=== PATIENT | male | born 1950 | race Caucasian/White ===

== ENCOUNTER 2018-01-07 01:29 | Outpatient (CLI) | payer OTHER, SELFPAY ==
[2018-01-07 12:08] LABS: Anion Gap 10.5 mmol/L (3-11); BUN 27 mg/dL (7-18); CO2 24.5 mmol/L (21.0-32.0); CREATININE 0.85 mg/dL (0.70-1.30); Calcium 9.7 mg/dL (8.5-10.1); Chloride 102 mmol/L (98-107); Glucose 93 mg/dL (70-100); Potassium 4.3 mmol/L (3.5-5.1); Sodium 137 mmol/L (136-145)
== END 2018-01-07 01:49 ==
PROVIDERS: PCP Family Medicine; Visit Provider Family Medicine
DX: I10 Essential (primary) hypertension (principal); E78.5 Hyperlipidemia, unspecified
CPT/HCPCS: 36415; 80048

== ENCOUNTER 2018-06-16 16:29 | Observation (INO) | payer OTHER, SELFPAY ==
[2018-06-16] VITALS (58 sets, daily range): BP systolic 76–124; BP diastolic 39–80; PULSE 65–146; RESP 15–31; TEMP 36–37.2; O2SAT 94–100
--- NOTE | 2018-06-16 16:49 | DI.COMBO_ITS ---
SYMPTOM/DIAGNOSIS: FELL, SYNCOPE, RAPID A FIB, FRONTAL CONTUSION AP AND LATERAL CHEST: The lungs are free of infiltrate. There is no pleural effusion. The cardiovascular structures appear intact. SUMMARY: No evidence of acute cardiopulmonary disease. NONCONTRAST HEAD CT: There is no evidence of an intra/extra-axial hemorrhage. There is no evidence of edema. There is mild generalized atrophy. The ventricles are normal. There is no skull fracture. The paranasal sinuses as visualized appear intact. There is no evidence of a mastoid effusion. Soft tissues are unremarkable. SUMMARY: No acute intracranial abnormality is demonstrated. CERVICAL SPINE CT: The vertebral bodies are intact with nothing to suggest an acute fracture. Disc space narrowing is noted at all cervical levels and there is a mild degree of spinal stenosis involving the neural foramen at multiple levels. The soft tissues are unremarkable. The lung apices are unremarkable. 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 There is nothing to suggest a superimposed acute fracture or subluxation.
--- NOTE | 2018-06-16 16:51 | W.ED.GENAD ---
Discharge Plan Disposition Patient Disposition: [facility] INPATIENT Condition: Improving Discharge Details Chief Complaint: Dizzy/Sync Clinical Impression: Atrial fibrillation with rapid ventricular response Primary Care Provider: Anthony Elizabeth ED Provider: Freddie Jo Home Meds and New Rx's Prescriptions: No Action atorvastatin 40 mg tablet 40 mg PO QPM Qty: 90 RF: 4 gemfibrozil 600 mg tablet 600 mg PO BID Qty: 180 RF: 4 lisinopril-hydrochlorothiazide 20-12.5 mg tablet 1 tab PO DAILY Qty: 90 RF: 4 aspirin [Aspir-81] 81 MG tablet,delayed release (DR/EC) 162 mg PO DAILY RF: 0 ibuprofen 200 MG tablet 600 tab PO DAILY PRN RF: 0 multivitamin [Daily Multi-Vitamin] 1 EACH tablet 1 tab PO DAILY RF: 0 Medical Decision Making 68-year-old male presents from home via EMS. States he awoke normally today and then was working on his roof going up and down the ladder all day. Minimal to no hydration by mouth. States he did have a small amount of alcohol at lunch. This afternoon he suddenly felt mildly lightheaded, generally weak and with palpitations. He sat on a fence and then had a syncopal event which she was witnessed to fall over and striking the ground. Denies chest pain. He arrives improved. Patient with rapid atrial fibrillation on triage. Exam otherwise notable for abrasions/contusion to the forehead. He has known underlying aortic stenosis as well. Differential diagnosis includes dehydration, electrolyte abnormality. Patient placed on monitor and storage bin tender, given fluid bolus and magnesium. Given his traumatic injury and syncopal event he is referred for laboratory testing, chest x-ray, CT scan of the head and cervical spine. Patient's radiographic evaluation is unremarkable. He has some pre-standing degenerative disease but no acute findings. Laboratories are notable for BUN of 47 with creatinine of 1.4 which is consistent with acute dehydration over his baseline. Following 1500 cc of fluid, patient remains in rapid atrial fibrillation. Given 10 mg of diltiazem bolus and placed on a drip. He will require admission. Case discussed with Dr. Louise. After interview with Dr. Louise, patient converted to normal sinus rhythm with a rate in the 90s. Lab Data Lab results reviewed: Yes I reviewed the patient's lab results. Laboratory Results - last 24 hr 06/16/18 06/16/18 16:50 16:50 WBC 9.12 RBC 3.61 L Hgb 11.5 L Hct 32.4 L MCV 89.8 MCH 31.9 MCHC 35.5 RDW 12.0 Plt Count 295 MPV 10.0 Immature Gran % 0.3 Neutrophils % 71.4 Lymphocytes % 19.2 Monocytes % 7.8 Eosinophils % 1.1 Basophils % 0.2 Absolute Neutrophils 6.51 Absolute Lymphocytes 1.75 Absolute Monocytes 0.71 H Absolute Eosinophils 0.10 Absolute Basophils 0.02 Sodium 138 Potassium 3.9 Chloride 102 Carbon Dioxide 20.3 L Anion Gap 15.7 H BUN 47 H Creatinine 1.43 H Estimated GFR/1.73 m2 49.03 Glucose 123 H Calcium 9.5 Magnesium 2.5 H Total Bilirubin 0.5 AST 14 L ALT 15 Alkaline Phosphatase 63 Troponin I 0.06 Total Protein 7.6 Albumin 4.5 TSH 1.48 ECG Data Attestation: I personally reviewed and interpreted this ECG (s) as follows: Interpretation: Rapid atrial fibrillation with a rate of 126. The QRS is narrow, no ST segment elevation is present. EKG #2 reveals normal sinus rhythm, rate in the 90s, narrow QRS, no ST segment elevation HPI General Mode of arrival: wheelchair. Date/Time Provider Initiated Documentation: 06/16/18 16:42. Limitations to Documentation: no limitations. Information obtained by: patient, family and EMS. History of Present Illness 68 year old M presents to the emergency department with the chief complaint of Palpitations, syncope with frontal contusion., described as moderate, Quality is described as constant, and is localized to the chest. Patient reports no radiation. Patient started experiencing this hour(s) and it has been intermittent. Rest improves symptom(s), Movement worsens symptoms . Patient notes headaches and syncope; denies chest pain, nausea/vomiting, seizure and shortness of breath. Patient did receive the following treatments prior to arrival, none Related Data Home Medications Medication Instructions Recorded Confirmed aspirin [Aspir 81] 162 mg PO DAILY tab-cap 11/06/12 06/16/18 ibuprofen 600 tab PO DAILY PRN 11/06/12 06/16/18 multivitamin [Multi Vitamin Daily] 1 tab PO DAILY 11/26/13 06/16/18 atorvastatin 40 mg tablet 40 mg PO QPM #90 tab 01/27/18 06/16/18 gemfibrozil 600 mg tablet 600 mg PO BID #180 tab-cap 01/27/18 06/16/18 lisinopril 20 1 tab PO DAILY #90 tab-cap 01/27/18 06/16/18 mg-hydrochlorothiazide 12.5 mg tablet Previous Rx's Medication Instructions Recorded atorvastatin 40 mg tablet 40 mg PO QPM #90 tab 01/27/18 gemfibrozil 600 mg tablet 600 mg PO BID #180 tab-cap 01/27/18 lisinopril 20 1 tab PO DAILY #90 tab-cap 01/27/18 mg-hydrochlorothiazide 12.5 mg tablet Allergies Allergy/AdvReac Type Severity Reaction Status Date / Time hydrocodone AdvReac Unknown Nausea Unverified 06/16/18 16:43 General Stated Complaint: Dizzy/Sync IAIN: 3 Review of Systems Review of Systems Had small amount of alcohol at lunch. Decreased p.o. intake today. Light headed with with rising. No neck, back, chest pain. Denies recent illness. 8 systems reviewed and otherwise negative [facility] Medical History Heart murmur (Acute) High cholesterol (Chronic) Hypertension (Chronic) Surgical History knee surgery (~04/2002) Family History Mother No problems noted. Father Diabetes Heart disease Brother Diabetes Essential hypertension Heart disease Hyperlipidemia Brother Essential hypertension Hyperlipidemia Brother Diabetes Essential hypertension Hyperlipidemia Social History Smoking/Tobacco Use Status: Never Second Hand Exposure: Yes Alcohol Intake: current Alcohol Intake frequency: a few times a week Alcohol type: wine Substance use type: does not use Duration: 60-90 minutes/day Frequency: 5-6 times per week Karen/Cheondoism: Confucianism Special karen needs: No Do you feel safe at home: Yes Exam Narrative Exam Narrative: GEN: awake, alert, oriented 3. Pleasant, well groomed, interactive. HEAD: Normocephalic, abrasions and contusions to the forehead. No midface tenderness, instability. ENT: Mucous membranes moist, oropharynx unremarkable, External ear exam unremarkable EYES: PERRL, EOMI NECK: Full ROM, no ERNESTO, no menigismus CHEST/RESP: Nontender, clear to auscultation bilateral, no wheeze/rhonchi/rales CARDIOVASCULAR: Irregularly irregular, tachycardic, 3 out of 6 systolic ejection murmur, rub sam. 2+ Rad pulse bilateral ABDOMEN: Soft, nontender, no mass. +Bowel sounds EXT: Full ROM, no edema, no rash Neuro: Grossly normal neurologic exam, conversant, interactive. Psych: Speech fluent, thoughts congruent, affect normal Course Vital Signs Temperature 36.7 C 06/16/18 16:36 Pulse 119 H 06/16/18 16:36 Respiratory Rate 21 06/16/18 16:36 Blood Pressure 100/55 L 06/16/18 16:36 Pulse Oximetry 100 06/16/18 16:36 Temperature 36.7 C 06/16/18 16:36 Temperature Source Skin 06/16/18 16:36 Pulse 119 H 06/16/18 16:36 Respiratory Rate 16 06/16/18 16:44 Respiratory Effort Non-Labored 06/16/18 16:44 Respiratory Depth Normal 06/16/18 16:44 Respiratory Pattern Normal 06/16/18 16:44 Blood Pressure 100/55 L 06/16/18 16:36 Pulse Oximetry 100 06/16/18 16:36 Pain Level 4 06/16/18 16:36
[2018-06-16 16:58] LABS: Abs Immature Grans 0.03 k/cumm (0.0-0.09); Absolute Basophil Count 0.02 k/cumm (0.0-0.2); Absolute Lymphocyte Count 1.75 k/cumm (1.2-3.4); Absolute Monocyte Count 0.71 k/cumm (0.11-0.7); Absolute Neutrophil Count 6.51 k/cumm (1.2-6.7); Basophils % 0.2; Eosinophils % 1.1; HCT 32.4 % (40.0-50.0); HGB 11.5 g/dL (13.5-17.5); Immature Grans % 0.3; Lymphocytes % 19.2; Mean Corp. HGB Concentration 35.5 g/dL (32.0-36.0); Mean Corpuscular Hemoglobin 31.9 pg (27.0-33.0); Mean Corpuscular Volume 89.8 fL (80-95); Monocytes % 7.8; Neutrophils % 71.4; Platelet Count 295 x1000/uL (130-400); RBC 3.61 m/cumm (4.50-6.00); White Blood Cell Count 9.12 k/cumm (4.4-10.8)
[2018-06-16] MEDS: Normal Saline 1,000 ML 1000 ML IV ×2 (16:59→23:38)
[2018-06-16] MEDS: MAGNESIUM SULFATE 2 GM/50 ML BAG IVPB (16:59)
[2018-06-16 17:18] LABS: ETHANOL BLOOD < 3.0 mg/dL (<3)
[2018-06-16 17:21] LABS: ALT 15 U/L (12-78); AST 14 U/L (15-37); Albumin 4.5 g/dL (3.4-5.0); Alkaline Phosphatase 63 U/L (46-116); Anion Gap 15.7 mmol/L (3-11); BUN 47 mg/dL (7-18); Bilirubin, Total 0.5 mg/dL (0.2-1.0); CO2 20.3 mmol/L (21.0-32.0); CREATININE 1.43 mg/dL (0.70-1.30); Calcium 9.5 mg/dL (8.5-10.1); Chloride 102 mmol/L (98-107); Estimated GFR 49.03 (mL/min/1.73m2); Glucose 123 mg/dL (70-100); Magnesium 2.5 mg/dL (1.8-2.4); Potassium 3.9 mmol/L (3.5-5.1); Sodium 138 mmol/L (136-145); TSH 1.48 uIU/mL (0.358-3.74); Total Protein 7.6 g/dL (6.4-8.2); Troponin I 0.06 ng/mL (0.00-0.06)
--- NOTE | 2018-06-16 17:39 | DI.VRAD_ITS ---
EXAM: XR Chest, 2 Views EXAM DATE/TIME: 06/16/2018 4:51 PM CLINICAL HISTORY: 68 years old, male; Signs and symptoms; Other: Fall/syncope. , Rapid afib TECHNIQUE: Imaging protocol: XR of the chest, 2 views. COMPARISON: No relevant prior studies available. FINDINGS: Lungs: See Bones/joints Finding. Pleural space: See Bones/joints Finding. Heart/Mediastinum: Unremarkable. No cardiomegaly. Bones/joints: There is mild spondylosis of the thoracic spine. There a few abnormal reticular markings in the right midlung most likely scarring. There is no pneumothorax, pleural effusion or focal consolidation. IMPRESSION: Chronic changes but no acute cardiopulmonary process. Dictated and Authenticated by: Ochoa Dumont MD. Ordering:CHARLES Frazier MD
--- NOTE | 2018-06-16 17:45 | DI.VRAD_ITS ---
EXAM: CT Head Without Contrast EXAM DATE/TIME: 06/16/2018 4:51 PM CLINICAL HISTORY: 68 years old, male; Signs and symptoms; Other: Fall, syncope, frontal contusion TECHNIQUE: Imaging protocol: Axial computed tomography images of the head/brain without contrast. Coronal and sagittal reformatted images were created and reviewed. Radiation optimization: All CT scans at this facility use at least one of these dose optimization techniques: automated exposure control; mA and/or kV adjustment per patient size (includes targeted exams where dose is matched to clinical indication); or iterative reconstruction. COMPARISON: No relevant prior studies available. FINDINGS: Brain: Normal. No hemorrhage. No significant white matter disease. No edema. Ventricles: Normal. No ventriculomegaly. Cortical sulci of the frontal and parietal lobes are mildly more prominent than average involutional changes Bones/joints: Unremarkable. No acute fracture. Sinuses: Visualized sinuses are unremarkable. No acute sinusitis. Mastoid air cells: Visualized mastoid air cells are unremarkable. No mastoid effusion. Soft tissues: Unremarkable. IMPRESSION: No acute intracranial abnormality. EXAM: CT Cervical Spine Without Contrast EXAM DATE/TIME: 06/16/2018 4:51 PM CLINICAL HISTORY: 68 years old, male; Signs and symptoms; Other: Fall, syncope, frontal contusion TECHNIQUE: Imaging protocol: Axial computed tomography images of the cervical spine without intravenous contrast. Coronal and sagittal reformatted images were created and reviewed. Radiation optimization: All CT scans at this facility use at least one of these dose optimization techniques: automated exposure control; mA and/or kV adjustment per patient size (includes targeted exams where dose is matched to clinical indication); or iterative reconstruction. COMPARISON: No relevant prior studies available. FINDINGS: Vertebrae: No acute fracture. Normal alignment. Discs/Spinal canal/Neural foramina: There is severe narrowing of essentially every disc space the cervical spine. There mild degrees of stenosis of the spinal canal the neural foramina multiple levels. Soft tissues: Unremarkable. Lungs: Lung apices are normal. IMPRESSION: Prominent multilevel discogenic disease but no acute abnormality Dictated and Authenticated by: Ochoa Dumont MD. Ordering:CHARLES Frazier MD
[2018-06-16] MEDS: dilTIAZem 25 MG/5 ML VIAL 10 MG IVP (18:07)
[2018-06-16] MEDS: dilTIAZem 125 MG in Normal Saline 100 ML IV (18:54)
--- NOTE | 2018-06-16 19:48 | HPE_ITS ---
Date of service: 06/16/18 Time of Service: 19:34 Assessment and Plan (1) Syncope: Current visit: Yes Status: Chronic Syncope: liklely secondary to rapid afib in setting of both aortic stenosis and dehydration. Will continue Cardizem overnight, trend out troponons, and uipdate ECHO. It does not sound to me like alcohol is a factor here. [id number] score is 2, nominally a candidate for antti-coagulation but given that this is a first time episode will hold on institution for now. Will continue ASA in meantime. History of Present Illness Chief Complaint: syncope Narrative: 68 male with h/o HTN and aortic stenosis. Was working hard outdoors today, hot and sweating, became light headed, noted some palpitations, then came to on the ground having passed out. No seizure activity reported. No report of CP. In ER noted to be in rapid AF, started on Cardizem drip. During my interview patient converted to NSR. Patient reports only minimal alcohol intake, one glass of wine per day. Review of Systems Review of Systems All systems reviewed & are unremarkable except as noted in HPI and below PFSH Medical History Heart murmur (Acute) High cholesterol (Chronic) Hypertension (Chronic) Surgical History knee surgery (~04/2002) Family History Mother No problems noted. Father Diabetes Heart disease Brother Diabetes Essential hypertension Heart disease Hyperlipidemia Brother Essential hypertension Hyperlipidemia Brother Diabetes Essential hypertension Hyperlipidemia Social History Smoking/Tobacco Use Status: Never Second Hand Exposure: Yes Alcohol Intake: current Alcohol Intake frequency: a few times a week Alcohol type: wine Substance use type: does not use Duration: 60-90 minutes/day Frequency: 5-6 times per week Karen/Judaism: Pentecostalism Special karen needs: No Do you feel safe at home: Yes Meds Home Medications Medication Instructions Recorded Confirmed Type aspirin [Aspir 81] 162 mg PO DAILY tab-cap 11/06/12 06/16/18 History ibuprofen 600 tab PO DAILY PRN 11/06/12 06/16/18 History multivitamin [Multi Vitamin Daily] 1 tab PO DAILY 11/26/13 06/16/18 History atorvastatin 40 mg tablet 40 mg PO QPM #90 tab 01/27/18 06/16/18 Rx gemfibrozil 600 mg tablet 600 mg PO BID #180 tab-cap 01/27/18 06/16/18 Rx lisinopril 20 1 tab PO DAILY #90 tab-cap 01/27/18 06/16/18 Rx mg-hydrochlorothiazide 12.5 mg tablet Allergies Allergy/AdvReac Type Severity Reaction Status Date / Time hydrocodone AdvReac Unknown Nausea Unverified 06/16/18 16:43 Exam Narrative Exam Narrative: 112/61, 95, 18, 99%, 36.7. HEENT 6-7 cm forehead abrasion. Neck supple. Lungs clear. Heart RRR, 3/6 systolic mumur radiating to carotids; carotid upstroke seems slightly delayed. Abdomen soft non-tender. Extr: no edema. Results EKG 1: AF, occ PVC. No ischemic changes. EKG 2 WNL. Labs : 06/16/18 16:50 06/16/18 16:50 Laboratory Results - last 24 hr 06/16/18 06/16/18 06/16/18 16:50 16:50 16:50 WBC 9.12 RBC 3.61 L Hgb 11.5 L Hct 32.4 L MCV 89.8 MCH 31.9 MCHC 35.5 RDW 12.0 Plt Count 295 MPV 10.0 Immature Gran % 0.3 Neutrophils % 71.4 Lymphocytes % 19.2 Monocytes % 7.8 Eosinophils % 1.1 Basophils % 0.2 Absolute Neutrophils 6.51 Absolute Lymphocytes 1.75 Absolute Monocytes 0.71 H Absolute Eosinophils 0.10 Absolute Basophils 0.02 Sodium 138 Potassium 3.9 Chloride 102 Carbon Dioxide 20.3 L Anion Gap 15.7 H BUN 47 H Creatinine 1.43 H Estimated GFR/1.73 m2 49.03 Glucose 123 H Calcium 9.5 Magnesium 2.5 H Total Bilirubin 0.5 AST 14 L ALT 15 Alkaline Phosphatase 63 Troponin I 0.06 Total Protein 7.6 Albumin 4.5 TSH 1.48 Ethyl Alcohol < 3.0 Last Vital Signs Temp 36.7 C 06/16/18 16:36 Pulse 95 H 06/16/18 19:11 Resp 18 06/16/18 19:11 BP 112/61 06/16/18 19:11 Pulse Ox 99 06/16/18 19:11
[2018-06-16 21:20] LABS: Troponin I 0.25 ng/mL (0.00-0.06)
[2018-06-16] MEDS: Atorvastatin 40 MG TAB PO (23:38)
[2018-06-16] MEDS: Acetaminophen 325 MG TAB 650 MG PO (23:44)
[2018-06-17] VITALS (27 sets, daily range): BP systolic 81–120; BP diastolic 44–65; PULSE 61–92; RESP 14–25; TEMP 36.6–37; O2SAT 98–100
[2018-06-17 07:32] LABS: Troponin I 0.19 ng/mL (0.00-0.06)
[2018-06-17] MEDS: Multivitamin TAB 1 TAB PO (08:41)
[2018-06-17] MEDS: Gemfibrozil 600 MG TAB PO (08:41)
[2018-06-17] MEDS: Aspirin E.C. 81 MG TABEC 162 MG PO (08:41)
[2018-06-17] MEDS: Normal Saline Flush 10 ML SYR IVP (08:42)
[2018-06-17] MEDS: Normal Saline 1,000 ML 75 ML IV (08:43)
[2018-06-17 09:08] LABS: Anion Gap 13.2 mmol/L (3-11); BUN 32 mg/dL (7-18); CO2 19.8 mmol/L (21.0-32.0); CREATININE 0.93 mg/dL (0.70-1.30); Calcium 8.4 mg/dL (8.5-10.1); Chloride 107 mmol/L (98-107); Glucose 115 mg/dL (70-100); Magnesium 2.3 mg/dL (1.8-2.4); NT-proBNP 2767 pg/mL; Potassium 3.6 mmol/L (3.5-5.1); Sodium 140 mmol/L (136-145); TSH 0.83 uIU/mL (0.358-3.74)
[2018-06-17 09:19] LABS: Cholesterol 109 mg/dL (50-200); HDL Cholesterol 51 mg/dL (40-60); LDL CHOLESTEROL 50 mg/dL (<100); Triglyceride 44 mg/dL (30-150)
--- NOTE | 2018-06-17 10:49 | PHARADMIT ---
Admission Pharmacy Clinical Review SYNCOPE, A-FIB (MPI Stress test today) Code Status Full Code Current Weight Wgt- 76.1 kg Renally Cleared and Narrow Therapeutic Index Meds CrCl~ 62 mL/min Meds-OK QTc Value / Action Taken QTc-486 to 463 BP Control, Fever BP- 102/51 Tmax- 37.2C Electrolytes reviewed Na- 140 K+3.6 Mag-2.3 DVT Prophylaxis ASA, Opiate Usage / Scheduled Bowel Regimen Ordered No No Plt/SCr for Heparin / Enoxaparin Plts-295 SCr-0.93 INR for Warfarin na H/H stable, WBC/Bands H&H-11.5/32.4 WBC- 9.12 Antibiotic appropriateness none Cultures and Sensitivities none Surgical ABX d/c within 24 hr NA DM control / Insulin Dosing BG-115 Heart Failure (Check EF%) (MARIELLE's, B-Block, Diuretics) Diltiazem drip-DC'd converted. IV to PO Switch No Home Meds Reviewed Yes Home Meds Not Ordered Lisinopril/HCTZ, Ibuprofen Comments Troponin- 0.06 ^ 0.25 ^ 0.19
[2018-06-17 11:04] LABS: Lactate-non-spesis 0.8 mmol/l (0.6-1.4)
--- NOTE | 2018-06-17 11:27 | DI.RAD_ITS ---
SYMPTOMS/DIAGNOSIS: SYNCOPE, AFIB, ? CHF PORTABLE AP CHEST: The lungs are well expanded and free of infiltrate. The heart is not enlarged. The hilar structures, mediastinum and tracheal air column are intact. Old healed right rib fractures are demonstrated. SUMMARY: No evidence of acute cardiopulmonary disease.
--- NOTE | 2018-06-17 11:30 | MERGEMPI_ITS ---
*[facility]* *[facility]* [address] [place] [address] Myocardial Perfusion Imaging - SPECT Regadenoson Date of study: 06/17/2018 *PATIENT PRESENTATION* Height: 162.6cm (64in) Blood Pressure: Weight: 75.9kg (167lb) BSA: 1.87m^2 Referring physician: Melody Velasquez Ordering physician: Melody Velasquez Impressions: Study suggests small myocardial infarction, without significant ischemia in the territory of the left anterior descending coronary artery. Summary: 1. Myocardial perfusion imaging: There is a small sized, moderately intense, fixed defect involving the apical wall(s). This suggests small myocardial infarction in the distribution of the left anterior descending coronary artery. 2. The calculated left ventricular ejection fraction after stress: 50%. LV global systolic function is low normal. No left ventricular regional motion abnormality. 3. Stress ECG conclusions: The stress ECG is negative. 4. Imaging information: gated. Image quality reduced due to diaphragmatic attenuation and subdiaphragmatic activity. Recommendations: Medical management is recommended. Indication: I48.91. History: REASON FOR TESTING: PATIENT PRESENTED TO THE ER ON 06/16/18 AFTER WORKING ON HIS ROOF ALL DAY. IN THE AFTERNOON HE SUDDENLY FELT MILDLY LIGHTHEADED, GENERALLY WEAK, HAD PALPITATIONS FOLLOWED BY A SYNCOPAL EVENT. HE THEN PRESENTED TO THE ER WITH RAPID AFIBRILLATION WHICH EVENTUALLY RETURNED TO SINUS RHYTHM AFTER IV FLUIDS AND CARDIAZEM BOLUS AND DRIP. TROPONIN LEVELS WITH THIS ADMISSION WERE 0.06, 0.25, AND 0.19. PATIENT DENIES CHEST PAIN UPON ARRIVAL TO TESTING TODAY. SIGNIFICANT PAST MEDICAL HISTORY: AORTIC STENOSIS, HEART MURMUR. SMOKING STATUS: NEVER. EXERCISE ROUTINE: PATIENT WALKS AT LEAST 2 MILES PER DAY AT LEAST 5 DAYS PER WEEK, AND ACTIVE WITH MAINTAINENCE OF LARGE PROPERTY AT HOME. Risk factors: Family history of coronary artery disease. Hypertension. Cholesterol: 109mg/dl. HDL: 51mg/dl. LDL: 50mg/dl. Triglycerides: 44mg/dl. ALLERGIES: HYDROCODONE. MEDICATIONS: ATOVASTATIN 40 MG HS, GEMFIBROZIL 600 MG BID, LISINOPRIL/HYDROCHLOROTHIAZIDE 20/12.5 DAILY, ASPIRIN 162 MG DAILY, IBUPROFEN 600 PRN, MULTIVITAMIN DAILY. Imaging Technique: Protocol: Regadenoson. Acquisition: Gated SPECT; 1 day - rest/stress. The patient was imaged in the supine position. Attenuation correction used. Isotope administration: - Rest. Tc[99m]-sestamibi. Dose: 10.4mCi. Injection time: 11:40 AM. Injection to stress time: 00:45. - Stress. Tc[99m]-sestamibi. Dose: 31mCi. Injection time: 01:30 PM. 1-2 min before end of exercise Baseline ECG: SINUS RHYTHM. HR 75 BPM. Normal ECG. Stress protocol: +--------+---+ + + !Stage !HR !BP (mmHg) !Comments ! +--------+---+ + + !Baseline!75 !110/60 (77)! ! +--------+---+ + + !1 min !106!110/54 (73)!Inject Regadenoson.! +--------+---+ + + !3 min !102!108/56 (73)! ! +--------+---+ + + !6 min !97 !108/60 (76)! ! +--------+---+ + + !9 min !94 !110/58 (75)! ! +--------+---+ + + * Stress results: STRESS TEST ENDED IN 9 MINUTES 22 SECONDS. NORMAL HEART RATE AND BLOOD PRESSURE RESPONSE TO LEXISCAN INJECTION. OCCASIONAL PAC'S AND PVC'S BOTH PRE AND POST LEXISCAN INJECTION. NO ANGINA. NO SIGNIFICANT ST SEGMENT CHANGES. The rate-pressure product for the peak heart rate and blood pressure was 67556fr Hg/min. Stress ECG: The stress ECG is negative. Myocardial perfusion: Imaging information: gated. Image quality reduced due to diaphragmatic attenuation and subdiaphragmatic activity. Left ventricular size is normal. There is a small sized, moderately intense, fixed defect involving the apical wall(s). This suggests small myocardial infarction in the distribution of the left anterior descending coronary artery. Ventricular Function (Wall Motion): The calculated left ventricular ejection fraction after stress: 50%. LV global systolic function is low normal. No left ventricular regional motion abnormality. Study data: Ritesh Stratton MD supervised and was readily available during the procedure. This study was interpreted by [facility]. Study status: Routine. Consent: The risks, benefits, and alternatives to the procedure were explained to the patient and informed consent was obtained. Procedure: Initial setup. A baseline ECG was recorded. Surface ECG leads and manual cuff blood pressure measurements were monitored. Heart sounds: Normal. Lung sounds: Normal. Regadenoson stress test. Stress testing was performed, with regadenoson by intravenous bolus, for a total dose of 0.4mgover 10.00sec, followed by a 5ml saline flush. The infusion was terminated due to per protocol. Study completion: All catheters inserted during the procedure were removed. The patient tolerated the procedure well and was discharged from the lab. Discharge: The patient left the laboratory in stable condition. Birthdate: Patient birthdate: 1950. Sex: Gender: male. Study date: Study date: 06/17/2018. Study time: 00:01 AM. Signature Documentation: - The imaging portion of this study was interpreted by [employer] Ritesh Stratton MD. - The Stress ECG portion of this study was interpreted by Ritesh Stratton MD. Electronically signed by Ritesh Stratton 06/17/2018 15:38
--- NOTE | 2018-06-17 13:27 | CHAPLAIN ---
Eddie was visiting with his (?) when I stopped in. I explained my role and offered support. They were pleasant and engaged in a short conversation.
[2018-06-17] MEDS: Regadenoson 0.4 MG/5 ML SYR IVP (14:08)
--- NOTE | 2018-06-17 14:17 | W.CARDCONSUL ---
Date of service: 06/17/18 Assessment and Plan (1) Syncope: Start date: 06/16/18 Current visit: Yes Status: Chronic Most likely vasovagal. Qualifiers: Syncope type: vasovagal syncope Qualified Code(s): R55 - Syncope and collapse (2) Elevated troponin: Start date: 06/16/18 Current visit: Yes Status: Acute Likely due to demand ischemia in setting of atrial fibrillation with rapid ventricular response. Troponin has peaked at 0.25. No angina or heart failure. If low risk stress test focus on primary prevention with aspirin and lipid-lowering therapy. If moderate risk stress test consider cardiac catheterization as an outpatient. If high risk stress test transfer for cardiac catheterization. (3) PAF (paroxysmal atrial fibrillation): Start date: 06/16/18 Current visit: Yes Status: Acute Currently in sinus rhythm with QTC of 467 ms. Stroke risk is elevated based on [id number] vascular score of 2 for age greater than 69 and hypertension. Start Eliquis 5 mg twice daily; no need for concomitant aspirin unless plan for cardiac catheterization. Discharge patient with 30-day event monitor to assess atrial fibrillation burden and to determine treatment strategy Provide patient with prescription of diltiazem 30 mg as needed for heart rate rated greater than 140 bpm for more than 10 minutes. (4) Aortic stenosis: Current visit: Yes Status: Chronic Mild by physical exam. Doubt that it contributed to his syncopal event. If severe aortic stenosis on echocardiogram outpatient CT surgery consult regarding vaqlve replacement. Qualifiers: Cardiac valve disease etiology: nonrheumatic Qualified Code(s): I35.0 - Nonrheumatic aortic (valve) stenosis (5) Essential hypertension: Current visit: No Status: Acute Hypotensive. Old antihypertensives. Restart if blood pressure persistently greater than 140 (6) Follow up: Current visit: Yes Status: Acute Cardiology outpatient follow-up 6 weeks after discharge. History of Present Illness Chief Complaint: Syncope Narrative: 68-year-old man with a family history of premature coronary artery disease, hypertension, hyperlipidemia and aortic stenosis. Patient was working all day yesterday in and around the house. 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 At the end of his workday he experienced a queasy feeling and passed out. He hit his head. He does not recall as to how long he was unconscious. This event was unwitnessed. He has never passed out before. He is never experienced any exertional chest pain or shortness of breath and overall he has never feel limited in his activities from a cardiac pulmonary standpoint. Upon arrival to the emergency department he was found to be in atrial fibrillation with rapid ventricular response. Spontaneously converted to sinus rhythm. He felt much better in sinus rhythm. He does not have a history of atrial fibrillation. EKG did not show acute ischemic changes and sinus. Troponin peaked at 0.25. Stress test and echocardiogram have been ordered but not performed. Patient denies palpitations, edema, focal deficits, claudication, bleeding, GI or symptoms. Review of systems: 10 point review of systems was performed; pertinent positives as mentioned HPI all others negative. Allergies reviewed. Medications reviewed. Cardiac medications include Aspirin 162 mg daily Atorvastatin 40 mg daily Gemfibrozil 600 mg twice daily Lisinopril 20 mg daily Hydrochlorothiazide 12.5 mg daily FSH reviewed; pertinent history as mentioned in HPI. Social history: Non-smoker. One glass of wine per day. Family history: Brother with coronary artery bypass surgery in his 50s. PHYSICAL EXAM General: pleasant, no acute distress HEENT: Anicteric, mucus membranes moist Neck: Supple, normal JVP, brisk carotid upstrokes, no bruits Chest: Non-tender Lungs: Clear to auscultation bilaterally, no crackles or wheezes Cardiac: Regular rate, regular rhythm, normal S1S2, 2 out of 6 early systolic crescendo decrescendo murmur at the apex, no diastolic murmur Abdomen: Soft, non-tender, bowel sounds present Extremities: No clubbing, cyanosis or edema, equal pulses in all 4 extremities Skin: Warm and dry, no rashes Neuro: Alert and oriented x3, grossly intact DATA: Available records including laboratory studies and cardiac studies reviewed; pertinent findings as mentioned above. Consults Consult date: 06/17/18 Requesting physician: Melody Velasquez [facility] Medical History Heart murmur (Acute) High cholesterol (Chronic) Hypertension (Chronic) Surgical History knee surgery (~04/2002) Family History Mother No problems noted. Father Diabetes Heart disease Brother Diabetes Essential hypertension Heart disease Hyperlipidemia Brother Essential hypertension Hyperlipidemia Brother Diabetes Essential hypertension Hyperlipidemia Social History Smoking/Tobacco Use Status: Never Second Hand Exposure: Yes Alcohol Intake: current Alcohol Intake frequency: a few times a week Alcohol type: wine Substance use type: does not use Duration: 60-90 minutes/day Frequency: 5-6 times per week Karen/Rastafarian: Cheondoism Special karen needs: No Do you feel safe at home: Yes Results Last Vital Signs Temp 37.0 C 06/17/18 11:43 Pulse 73 06/17/18 09:01 Resp 22 06/17/18 09:01 BP 102/51 L 06/17/18 09:01 Pulse Ox 100 06/17/18 07:50 Labs : 06/16/18 16:50 06/17/18 06:14 Laboratory Results - last 24 hr 06/16/18 06/16/18 06/16/18 16:50 16:50 16:50 WBC 9.12 RBC 3.61 L Hgb 11.5 L Hct 32.4 L MCV 89.8 MCH 31.9 MCHC 35.5 RDW 12.0 Plt Count 295 MPV 10.0 Immature Gran % 0.3 Neutrophils % 71.4 Lymphocytes % 19.2 Monocytes % 7.8 Eosinophils % 1.1 Basophils % 0.2 Absolute Neutrophils 6.51 Absolute Lymphocytes 1.75 Absolute Monocytes 0.71 H Absolute Eosinophils 0.10 Absolute Basophils 0.02 Sodium 138 Potassium 3.9 Chloride 102 Carbon Dioxide 20.3 L Anion Gap 15.7 H BUN 47 H Creatinine 1.43 H Estimated GFR/1.73 m2 49.03 Glucose 123 H Lactate Calcium 9.5 Magnesium 2.5 H Total Bilirubin 0.5 AST 14 L ALT 15 Alkaline Phosphatase 63 Troponin I 0.06 NT-Pro-B Natriuret Pep Total Protein 7.6 Albumin 4.5 Triglycerides Total Cholesterol LDL Cholesterol Direct HDL Cholesterol TSH 1.48 Ethyl Alcohol < 3.0 06/16/18 06/17/18 06/17/18 20:50 06:14 10:46 WBC RBC Hgb Hct MCV MCH MCHC RDW Plt Count MPV Immature Gran % Neutrophils % Lymphocytes % Monocytes % Eosinophils % Basophils % Absolute Neutrophils Absolute Lymphocytes Absolute Monocytes Absolute Eosinophils Absolute Basophils Sodium 140 Potassium 3.6 Chloride 107 Carbon Dioxide 19.8 L Anion Gap 13.2 H BUN 32 H D Creatinine 0.93 D Estimated GFR/1.73 m2 >= 60.00 Glucose 115 H Lactate 0.8 Calcium 8.4 L Magnesium 2.3 Total Bilirubin AST ALT Alkaline Phosphatase Troponin I 0.25 H* 0.19 H* NT-Pro-B Natriuret Pep 2767 H Total Protein Albumin Triglycerides 44 Total Cholesterol 109 LDL Cholesterol Direct 50 HDL Cholesterol 51 TSH 0.83 Ethyl Alcohol
--- NOTE | 2018-06-17 14:20 | CCONE_ITS ---
Date of service: 06/17/18 Assessment and Plan (1) Syncope: Start date: 06/16/18 Current visit: Yes Status: Chronic Most likely vasovagal. Qualifiers: Syncope type: vasovagal syncope Qualified Code(s): R55 - Syncope and collapse (2) Elevated troponin: Start date: 06/16/18 Current visit: Yes Status: Acute Likely due to demand ischemia in setting of atrial fibrillation with rapid ventricular response. Troponin has peaked at 0.25. No angina or heart failure. If low risk stress test focus on primary prevention with aspirin and lipid- lowering therapy. If moderate risk stress test consider cardiac catheterization as an outpatient. If high risk stress test transfer for cardiac catheterization. (3) PAF (paroxysmal atrial fibrillation): Start date: 06/16/18 Current visit: Yes Status: Acute Currently in sinus rhythm with QTC of 467 ms. Stroke risk is elevated based on [id number] vascular score of 2 for age greater than 69 and hypertension. Start Eliquis 5 mg twice daily; no need for concomitant aspirin unless plan for cardiac catheterization. Discharge patient with 30-day event monitor to assess atrial fibrillation burden and to determine treatment strategy Provide patient with prescription of diltiazem 30 mg as needed for heart rate rated greater than 140 bpm for more than 10 minutes. (4) Aortic stenosis: Current visit: Yes Status: Chronic Mild by physical exam. Doubt that it contributed to his syncopal event. If severe aortic stenosis on echocardiogram outpatient CT surgery consult re garding vaqlve replacement. Qualifiers: Cardiac valve disease etiology: nonrheumatic Qualified Code(s): I35.0 - Nonrheumatic aortic (valve) stenosis (5) Essential hypertension: Current visit: No Status: Acute Hypotensive. Old antihypertensives. Restart if blood pressure persistently greater than 140 (6) Follow up: Current visit: Yes Status: Acute Cardiology outpatient follow-up 6 weeks after discharge. History of Present Illness Chief Complaint: Syncope Narrative: 68-year-old man with a family history of premature coronary artery disease, hypertension, hyperlipidemia and aortic stenosis. Patient was working all day yesterday in and around the house. 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 At the end of his workday he experienced a queasy feeling and passed out. He hit his head. He does not recall as to how long he was unconscious. This event was unwitnessed. He has never passed out before. He is never experienced any exertional chest pain or shortness of breath and overall he has never feel limited in his activities from a cardiac pulmonary standpoint. Upon arrival to the emergency department he was found to be in atrial fibrillation with rapid ventricular response. Spontaneously converted to sinus rhythm. He felt much better in sinus rhythm. He does not have a history of atrial fibrillation. EKG did not show acute ischemic changes and sinus. Troponin peaked at 0.25. Stress test and echocardiogram have been ordered but not performed. Patient denies palpitations, edema, focal deficits, claudication, bleeding, GI or symptoms. Review of systems: 10 point review of systems was performed; pertinent positives as mentioned HPI all others negative. Allergies reviewed. Medications reviewed. Cardiac medications include Aspirin 162 mg daily Atorvastatin 40 mg daily Gemfibrozil 600 mg twice daily Lisinopril 20 mg daily Hydrochlorothiazide 12.5 mg daily FSH reviewed; pertinent history as mentioned in HPI. Social history: Non-smoker. One glass of wine per day. Family history: Brother with coronary artery bypass surgery in his 50s. PHYSICAL EXAM General: pleasant, no acute distress HEENT: Anicteric, mucus membranes moist Neck: Supple, normal JVP, brisk carotid upstrokes, no bruits Chest: Non-tender Lungs: Clear to auscultation bilaterally, no crackles or wheezes Cardiac: Regular rate, regular rhythm, normal S1S2, 2 out of 6 early systolic crescendo decrescendo murmur at the apex, no diastolic murmur Abdomen: Soft, non-tender, bowel sounds present Extremities: No clubbing, cyanosis or edema, equal pulses in all 4 extremities Skin: Warm and dry, no rashes Neuro: Alert and oriented x3, grossly intact DATA: Available records including laboratory studies and cardiac studies reviewed; pertinent findings as mentioned above. Consults Consult date: 06/17/18 Requesting physician: Melody Velasquez [facility] Medical History Heart murmur (Acute) High cholesterol (Chronic) Hypertension (Chronic) Surgical History knee surgery (~04/2002) Family History Mother No problems noted. Father Diabetes Heart disease Brother Diabetes Essential hypertension Heart disease Hyperlipidemia Brother Essential hypertension Hyperlipidemia Brother Diabetes Essential hypertension Hyperlipidemia Social History Smoking/Tobacco Use Status: Never Second Hand Exposure: Yes Alcohol Intake: current Alcohol Intake frequency: a few times a week Alcohol type: wine Substance use type: does not use Duration: 60-90 minutes/day Frequency: 5-6 times per week Karen/Islam: Restorationist Special karen needs: No Do you feel safe at home: Yes Results Last Vital Signs Temp 37.0 C 06/17/18 11:43 Pulse 73 06/17/18 09:01 Resp 22 06/17/18 09:01 BP 102/51 L 06/17/18 09:01 Pulse Ox 100 06/17/18 07:50 Labs : 06/16/18 16:50 06/17/18 06:14 Laboratory Results - last 24 hr 06/16/18 06/16/18 06/16/18 16:50 16:50 16:50 WBC 9.12 RBC 3.61 L Hgb 11.5 L Hct 32.4 L MCV 89.8 MCH 31.9 MCHC 35.5 RDW 12.0 Plt Count 295 MPV 10.0 Immature Gran % 0.3 Neutrophils % 71.4 Lymphocytes % 19.2 Monocytes % 7.8 Eosinophils % 1.1 Basophils % 0.2 Absolute Neutrophils 6.51 Absolute Lymphocytes 1.75 Absolute Monocytes 0.71 H Absolute Eosinophils 0.10 Absolute Basophils 0.02 Sodium 138 Potassium 3.9 Chloride 102 Carbon Dioxide 20.3 L Anion Gap 15.7 H BUN 47 H Creatinine 1.43 H Estimated GFR/1.73 m2 49.03 Glucose 123 H Lactate Calcium 9.5 Magnesium 2.5 H Total Bilirubin 0.5 AST 14 L ALT 15 Alkaline Phosphatase 63 Troponin I 0.06 NT-Pro-B Natriuret Pep Total Protein 7.6 Albumin 4.5 Triglycerides Total Cholesterol LDL Cholesterol Direct HDL Cholesterol TSH 1.48 Ethyl Alcohol < 3.0 06/16/18 06/17/18 06/17/18 20:50 06:14 10:46 WBC RBC Hgb Hct MCV MCH MCHC RDW Plt Count MPV Immature Gran % Neutrophils % Lymphocytes % Monocytes % Eosinophils % Basophils % Absolute Neutrophils Absolute Lymphocytes Absolute Monocytes Absolute Eosinophils Absolute Basophils Sodium 140 Potassium 3.6 Chloride 107 Carbon Dioxide 19.8 L Anion Gap 13.2 H BUN 32 H D Creatinine 0.93 D Estimated GFR/1.73 m2 >= 60.00 Glucose 115 H Lactate 0.8 Calcium 8.4 L Magnesium 2.3 Total Bilirubin AST ALT Alkaline Phosphatase Troponin I 0.25 H* 0.19 H* NT-Pro-B Natriuret Pep 2767 H Total Protein Albumin Triglycerides 44 Total Cholesterol 109 LDL Cholesterol Direct 50 HDL Cholesterol 51 TSH 0.83 Ethyl Alcohol
--- NOTE | 2018-06-17 16:05 | W.PM.DS.N ---
Date of service: 06/17/18 Time of Service: 16:05 DS: Diagnosis Discharge Diagnosis (1) Syncope: Status: Chronic (2) Elevated troponin: Status: Acute (3) PAF (paroxysmal atrial fibrillation): Status: Acute (4) Aortic stenosis: Status: Chronic (5) Essential hypertension: Status: Acute Discharge Plan Disposition Patient Disposition: HOME Condition: Stable Discharge Details Reason For Visit: SYNCOPE, AFIB Admit Date/Time: 06/16/18 19:48 Admit Provider: Pramod Louise Attending Provider: Pramod Louise Primary Care Provider: Anthony Elizabeth [facility] Course Hospital Course: Mr Goff is a 68 year old male with PMHx of aortic stenosis, hypertension, hyperlipidemia, who was observed on [facility] hospitalist service from 06/16/18 to 06/17/18 for syncope in setting of new onset rapid atrial fibrillation. This was treated with IVF and cardizem drip. The patient converted to NSR overnight. He did have borderline elevated troponins, underwent a cardiology consult by Dr Stratton and a nuclear stress test. This revealed a small area of myocardial infarction (fixed defect) in the territory of LAD, but no regional wall motion abnormality. EF was 50%. Medical management was recommended. For his Afib, he is being initiated on eliquis. He will need to have an outpatient echocardiogram to follow up his aortic stenosis. Unfortunately, we cannot obtain this echocardiogram within the next 72 hours on inpatient basis. He is being given a prescription for cardizem 30 mg prn for episodes of Afib with HR >140 x 10 minuites. He is not going home on lisinopril/HCTZ as at the time of his discharge his BP is in low 100's. He is encouraged to drink plenty of fluid on discharge and to follow up with his PCP in 1-2 weeks and cardiology in 6 weeks. He is getting discharged home with a 30 day event monitor. Home Meds and New Rx's Prescriptions: New acetaminophen [Tylenol] 325 mg Tablet 650 mg PO Q4H PRN PRNQty: 0 RF: 0 diltiazem HCl [Cardizem] 30 mg tablet 30 mg PO DAILY PRN PRN (Reason: prn HR>140 x 10 minutes or longer) Qty: 10 RF: 0 Eliquis 5 mg tablet 5 mg PO BID Qty: 60 RF: 0 Continued atorvastatin 40 mg tablet 40 mg PO QPM Qty: 90 RF: 4 gemfibrozil 600 mg tablet 600 mg PO BID Qty: 180 RF: 4 multivitamin [Daily Multi-Vitamin] 1 EACH tablet 1 tab PO DAILY RF: 0 Discontinued lisinopril-hydrochlorothiazide 20-12.5 mg tablet 1 tab PO DAILY Qty: 90 RF: 4 aspirin [Aspir-81] 81 MG tablet,delayed release (DR/EC) 162 mg PO DAILY RF: 0 ibuprofen 200 MG tablet 600 tab PO DAILY PRN RF: 0 Discharge Instructions Instructions: Diltiazem (By mouth), Apixaban (By mouth), Atrial Fibrillation (DC) Additional Instructions: Return to the hospital with any fever, bleeding, chest pain, or shortness of breath. Take a dose of cardizem (30 mg) if you feel palpitations, and your heart rate is greater than 140 for 10 minutes or longer. Follow up with your PCP in 1-2 weeks and with a field human resources manager in 6 weeks. Referrals: Ritesh Stratton MD [MD CONSULTING PHYSICIAN] - (New onset Afib/paroxysmal. Follow up in 6 weeks) Anthony Elizabeth MD [Primary Care Provider] - Activity:: Activity as Tolerated Equipment/Supplies:: 30 day event monitor Diet:: Low Sodium Discharge Orders Discharge Orders: Discharge Order (Routine); Ordered 06/17/18 Ordered By: Melody Velasquez Other Ambulatory Orders: US echocardiogram (Routine) Timeframe: 1 Week Facility: [facility] - Location: DIAGNOSTIC IMAGING DEPT Ordered By: Melody Velasquez Cardiac Event Recorder (Outpt) (ONCE) Timeframe: [id number] Location: Determined by Patient Ordered By: Melody Velasquez Exam Narrative Exam Narrative: General: middle-aged male, sitting up in bed; abrasions on forehead HEENT: EOMI, MMM Heart: RRR, +MARISOL Lungs: quiet wheezing B GI: abdomen is soft, nontender, nondistended Extremities: no e/c/c BLE's DS: Data Vitals/I&O Vitals and I&O: Vital Signs Temperature 36.6 C 06/17/18 15:10 Temperature Source Temporal Artery Scan 06/17/18 15:10 Pulse 70 06/17/18 12:01 Pulse 83 06/17/18 12:01 Respiratory Rate 18 04/24/19 12:01 Respiratory Effort 06/17/18 15:10 Respiratory Depth Normal 06/17/18 15:10 Respiratory Pattern Normal 06/17/18 15:10 Blood Pressure 109/51 L 06/17/18 12:01 Blood Pressure Mean 66 06/17/18 12:01 Blood Pressure Position Supine 06/16/18 22:20 Pulse Oximetry 98 06/17/18 15:10 Oxygen Delivery Method Room Air 06/17/18 15:10 Oxygen Flow Rate 0 06/17/18 15:10 Pain Level 0 06/17/18 15:10 Intake & Output 06/16/18 06/17/18 06/17/18 23:59 11:59 23:59 Intake Total 1197.375 / 1197.375 150 / 410 260 / 410 Output Total 1325 / 1325 2150 / 2150 Balance -127.625 / -127.625 -2000 / -1740 260 / -1740 Weight 76 kg 76.1 kg Intake: IV 1047.375 / 1047.375 260 / 260 Oral 150 / 150 150 / 150 Output: Urine 1325 / 1325 2150 / 2150 Other: Urine Color Yellow Pale Yellow Urine Appearance Clear Clear Urine Odor Normal Normal Comment Voids to urinal. VOIDING VIA URINAL. SG 1.020, PH 6, TRACE BLOOD, MOD LEUKS. Voiding Methods Urinal Urinal Completed studies during hospitalization [Text1]: CXR: No evidence of acute cardiopulmonary disease. MPI: Study suggests small myocardial infarction, without significant ischemia in the territory of the left anterior descending coronary artery. Summary: 1. Myocardial perfusion imaging: There is a small sized, moderately intense, fixed defect involving the apical wall(s). This suggests small myocardial infarction in the distribution of the left anterior descending coronary artery. 2. The calculated left ventricular ejection fraction after stress: 50%. LV global systolic function is low normal. No left ventricular regional motion abnormality. 3. Stress ECG conclusions: The stress ECG is negative. 4. Imaging information: gated. Image quality reduced due to diaphragmatic attenuation and subdiaphragmatic activity. Recommendations: Medical management is recommended. Labs on day of discharge: Labs from last 24 hours 06/17/18 06/17/18 06/16/18 10:46 06:14 20:50 WBC RBC Hgb Hct MCV MCH MCHC RDW Plt Count MPV Immature Gran % Neutrophils % Lymphocytes % Monocytes % Eosinophils % Basophils % Absolute Neutrophils Absolute Lymphocytes Absolute Monocytes Absolute Eosinophils Absolute Basophils Sodium 140 Potassium 3.6 Chloride 107 Carbon Dioxide 19.8 L Anion Gap 13.2 H BUN 32 H D Creatinine 0.93 D Estimated GFR/1.73 m2 >= 60.00 Glucose 115 H Lactate 0.8 Calcium 8.4 L Magnesium 2.3 Total Bilirubin AST ALT Alkaline Phosphatase Troponin I 0.19 H* 0.25 H* NT-Pro-B Natriuret Pep 2767 H Total Protein Albumin Triglycerides 44 Total Cholesterol 109 LDL Cholesterol Direct 50 HDL Cholesterol 51 TSH 0.83 Ethyl Alcohol 06/16/18 06/16/18 06/16/18 16:50 16:50 16:50 WBC 9.12 RBC 3.61 L Hgb 11.5 L Hct 32.4 L MCV 89.8 MCH 31.9 MCHC 35.5 RDW 12.0 Plt Count 295 MPV 10.0 Immature Gran % 0.3 Neutrophils % 71.4 Lymphocytes % 19.2 Monocytes % 7.8 Eosinophils % 1.1 Basophils % 0.2 Absolute Neutrophils 6.51 Absolute Lymphocytes 1.75 Absolute Monocytes 0.71 H Absolute Eosinophils 0.10 Absolute Basophils 0.02 Sodium 138 Potassium 3.9 Chloride 102 Carbon Dioxide 20.3 L Anion Gap 15.7 H BUN 47 H Creatinine 1.43 H Estimated GFR/1.73 m2 49.03 Glucose 123 H Lactate Calcium 9.5 Magnesium 2.5 H Total Bilirubin 0.5 AST 14 L ALT 15 Alkaline Phosphatase 63 Troponin I 0.06 NT-Pro-B Natriuret Pep Total Protein 7.6 Albumin 4.5 Triglycerides Total Cholesterol LDL Cholesterol Direct HDL Cholesterol TSH 1.48 Ethyl Alcohol < 3.0 PFSH Medical History Heart murmur (Acute) High cholesterol (Chronic) Hypertension (Chronic) Surgical History knee surgery (~04/2002) Family History Mother No problems noted. Father Diabetes Heart disease Brother Diabetes Essential hypertension Heart disease Hyperlipidemia Brother Essential hypertension Hyperlipidemia Brother Diabetes Essential hypertension Hyperlipidemia Social History Smoking/Tobacco Use Status: Never Second Hand Exposure: Yes Alcohol Intake: current Alcohol Intake frequency: a few times a week Alcohol type: wine Substance use type: does not use Duration: 60-90 minutes/day Frequency: 5-6 times per week Karen/Restorationist: Druze Special karen needs: No Do you feel safe at home: Yes
--- NOTE | 2018-06-17 16:57 | PDOC.CMIN ---
- If Service Date Differs Date of service: 06/17/18 Time of Service: 16:57 Care Management Initial Assess REASON FOR HOSPITALIZATION:: Syncope and afib PAST MEDICAL HISTORY/PAST SURGICAL HISTORY:: Heart murmur, high cholesterol and hypertension. 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 He is independent with ADL's at baseline including transportation. CURRENT FUNCTIONAL STATUS:: Eddie is preparing for discharge he states that he is ready to return home. CM assisted Eddie in coorination of Eliquis presciption through [facility] and with mail order pharmacy. ADVANCE DIRECTIVES:: On file at [facility] Has patient been provided with information about the portal?: Yes Did the patient sign up for the portal?: Yes CODE STATUS:: Full Code INSURANCE COVERAGE / FINANCIAL ISSUES:: [facility] CURRENT HOME/COMMUNITY SERVICES/EQUIPMENT:: No current services PRIMARY CARE PHYSICIAN:: POTENTIAL DISCHARGE NEEDS:: Follow up with cardiology and primary care. PATIENT/FAMILY EDUCATION NEEDS:: Discharge education, limitations, medications and follow up plan of care including ask me three and self management. ANTICIPATED BARRIERS TO DISCHARGE:: None identified TRANSPORTATION:: Via private car with SO at time of discharge. PLAN:: Eddie is having a stress test and cardiology consult. Anticipate he will be discharged today with no services follow up with primary care as directed.
--- NOTE | 2018-06-17 18:12 | INITIAL_ITS ---
- If Service Date Differs Date of service: 06/17/18 Time of Service: 16:57 Care Management Initial Assess REASON FOR HOSPITALIZATION:: Syncope and afib PAST MEDICAL HISTORY/PAST SURGICAL HISTORY:: Heart murmur, high cholesterol and hypertension. 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 He is independent with ADL's at baseline including transportation. CURRENT FUNCTIONAL STATUS:: Eddie is preparing for discharge he states that he is ready to return home. CM assisted Eddie in coorination of Eliquis presciption through [facility] and with mail order pharmacy. ADVANCE DIRECTIVES:: On file at [facility] Has patient been provided with information about the portal?: Yes Did the patient sign up for the portal?: Yes CODE STATUS:: Full Code INSURANCE COVERAGE / FINANCIAL ISSUES:: [facility] CURRENT HOME/COMMUNITY SERVICES/EQUIPMENT:: No current services PRIMARY CARE PHYSICIAN:: POTENTIAL DISCHARGE NEEDS:: Follow up with cardiology and primary care. PATIENT/FAMILY EDUCATION NEEDS:: Discharge education, limitations, medications and follow up plan of care including ask me three and self management. ANTICIPATED BARRIERS TO DISCHARGE:: None identified TRANSPORTATION:: Via private car with SO at time of discharge. PLAN:: Eddie is having a stress test and cardiology consult. Anticipate he will be discharged today with no services follow up with primary care as directed.
--- NOTE | 2018-06-17 18:12 | PDOC.CMDIS ---
- If Service Date Differs Date of service: 06/17/18 Time of Service: 18:12 LACE Index Scoring Tool - Questions: Length of Stay (in days): 1 Acuity (Admit via E.D.?): Yes E.D. Visits: 1 - Answers: Total Score: 5 Risk of Readmission: Low Risk Care Management Discharge Reason for Hospitalization: Syncope and afib Discharge Plan: Eddie will be discharged home today CM coordinated Eliquis through [facility] pharmacy in [place], [place]. Patient requested portal access which CM assisted with. Patient/Family Education Needs: Discharge education, limitations and follow up plan of care including medications.
--- NOTE | 2018-06-17 18:18 | CMDISCH_ITS ---
- If Service Date Differs Date of service: 06/17/18 Time of Service: 18:12 LACE Index Scoring Tool - Questions: Length of Stay (in days): 1 Acuity (Admit via E.D.?): Yes E.D. Visits: 1 - Answers: Total Score: 5 Risk of Readmission: Low Risk Care Management Discharge Reason for Hospitalization: Syncope and afib Discharge Plan: Eddie will be discharged home today CM coordinated Eliquis through [facility] pharmacy in [place], [place]. Patient requested portal access which CM assisted with. Patient/Family Education Needs: Discharge education, limitations and follow up plan of care including medications.
== END 2018-06-17 17:30 | disposition home or self-care (01) ==
LOC: ER 22:09 → ICU 22:44
PROVIDERS: Admitting Provider General Practice; Emergency Provider Emergency Medicine; PCP Family Medicine; Visit Provider Internal Medicine
DX: R55 Syncope and collapse (principal); I48.0 Paroxysmal atrial fibrillation; I21.A1 Myocardial infarction type 2; R74.8 Abnormal levels of other serum enzymes; I35.0 Nonrheumatic aortic (valve) stenosis; I10 Essential (primary) hypertension; E78.5 Hyperlipidemia, unspecified; Z82.49 Family history of ischemic heart disease and other diseases of the circulatory system
CPT/HCPCS: 36415; 78452; 80048; 80053; 80061; 83721; 93005; 93016; 93018; 96361; 96365; 96366; 96376; 99217; 99222; 99223; 99254; 99285; 70450; 71045; 71046; 72125; 80320; 83605; 83735; 83880; 84443; 84484; 85025; 93010; 93017; 99219; G0378; J2785

== ENCOUNTER 2018-06-22 02:33 | Outpatient (CLI) | payer OTHER, SELFPAY ==
--- NOTE | 2018-07-27 10:26 | CER_ITS ---
DATE OF DICTATION: July 27, 2018 [facility] MONITOR REPORT 1. MONITOR IN PLACE: 30 days, June 25 - July 24, 2018 2. Baseline rhythm sinus, average heart rate 88 bpm. 3. No atrial fibrillation. 4. 2% ventricular ectopy overall. 5. Four serious, two stable episodes, all occurring during ventricular tachycardia. Ventricular tach ycardia appears to be multifocal. Longest run 6-beat duration. 6. No symptoms.
== END 2018-06-22 02:53 ==
PROVIDERS: PCP Family Medicine; Visit Provider Internal Medicine
DX: I48.0 Paroxysmal atrial fibrillation (principal); I47.2 Ventricular tachycardia
CPT/HCPCS: 93270

== ENCOUNTER 2018-07-07 00:59 | Outpatient (CLI) | payer OTHER, SELFPAY ==
--- NOTE | 2018-07-07 07:30 | MERGE_ITS ---
*[facility]* * Cardiology* [address] [place] [address] Date of study: 07/07/2018 Transthoracic Echocardiography M-mode, complete 2D, complete spectral Doppler, and color Doppler *STUDY CONCLUSIONS* Summary: 1. Left ventricle: The cavity size was normal. Wall thickness was increased in a pattern of moderate LVH. Systolic function was normal. The estimated ejection fraction was 55-60%. Wall motion was normal; there were no regional wall motion abnormalities. Doppler parameters are consistent with high ventricular filling pressure. 2. Right ventricle: The cavity size was normal. Systolic function was normal. 3. Left atrium: The atrium was moderately dilated. 4. Aortic valve: Probably trileaflet; severely thickened, severely calcified leaflets. Valve mobility was restricted. Transvalvular velocity was increased. There was severe stenosis. There was moderate regurgitation. Peak velocity (S): 5.9m/sec. VTI ratio of LVOT to aortic valve: 0.18. 5. Inferior vena cava: The vessel was patent and normal in size. The respirophasic diameter changes were in the normal range (greater than or equal to 50%), consistent with normal central venous pressure. *PATIENT PRESENTATION* Height: 175.3cm ((69in) ) S/D Pressure: 118 / 63 Weight: 73.9kg ((162.7lb) ) BSA: 1.9m^2 Test start time: 07:40 AM. Test stop time: 08:45 AM. PERFORMING Unknown REFERRING Ritesh Stratton PERFORMING [facility] PRORATION CLERK RT Fred (R)(CT), RDCS CONSULTING Melody Velasquez ORDERING Melody Velasquez REFERRING Melody Velasquez *PROCEDURE DATA* Procedure information: This study was interpreted by [facility]. Pertinent images and digital data are archived for permanent storage and are available for subsequent review. Comparison was made to the study of 2011. Study status: Routine. Transthoracic echocardiography. M-mode, complete 2D, complete spectral Doppler, and color Doppler. A Transthoracic Echocardiogram was performed. Scanning was performed from the parasternal, apical, subcostal, and suprasternal notch acoustic windows. Images were obtained using an [id number] cardiac ultrasound machine. Image quality was adequate. Study completion: The patient tolerated the procedure well. There were no complications. History: PMH: Aortic stenosis syncope i35.0. *CARDIAC ANATOMY* Left ventricle: The cavity size was normal. Wall thickness was increased in a pattern of moderate LVH. Systolic function was normal. The estimated ejection fraction was 55-60%. Wall motion was normal; there were no regional wall motion abnormalities. Findings consistent with diastolic dysfunction. Doppler parameters are consistent with high ventricular filling pressure. Aortic valve: Probably trileaflet; severely thickened, severely calcified leaflets. Valve mobility was restricted. Doppler: Transvalvular velocity was increased. There was severe stenosis. There was moderate regurgitation. VTI ratio of LVOT to aortic valve: 0.18. Valve area (VTI): 0.7cm^2. Indexed valve area (VTI): 0.4cm^2/m^2. Peak velocity ratio of LVOT to aortic valve: 0.17. Valve area (Vmax): 0.7cm^2. Indexed valve area (Vmax): 0.3cm^2/m^2. Mean velocity ratio of LVOT to aortic valve: 0.17. Valve area (Vmean): 0.7cm^2. Indexed valve area (Vmean): 0.3cm^2/m^2. Mean gradient (S): 88.7mm Hg. Peak gradient (S): 137.2mm Hg. Aorta: Aortic root: The aortic root was normal in size. Ascending aorta: The ascending aorta was normal in size. Mitral valve: Mildly thickened leaflets. Mobility was not restricted. Doppler: Transvalvular velocity was within the normal range. There was no evidence for stenosis. There was trivial regurgitation. Valve area by pressure half-time: 5.7cm^2. Indexed valve area by pressure half-time: 3cm^2/m^2. Left atrium: The atrium was moderately dilated. Right ventricle: The cavity size was normal. Systolic function was normal. Pulmonic valve: Doppler: Transvalvular velocity was within the normal range. There was no evidence for stenosis. There was mild regurgitation. Tricuspid valve: Structurally normal valve. Doppler: Transvalvular velocity was within the normal range. There was no evidence for stenosis. There was mild regurgitation. Pulmonary artery: Systolic pressure could not be accurately estimated. Right atrium: The atrium was normal in size. Pericardium: There was no pericardial effusion. Systemic veins: Inferior vena cava: Well visualized. The vessel was patent and normal in size. The respirophasic diameter changes were in the normal range (greater than or equal to 50%), consistent with normal central venous pressure. Baseline ECG: Normal sinus rhythm. Measurements Left ventricle Value Reference LV ID, ED, PLAX 5.6 cm 3.5 - 6.0 LV ID, ES, PLAX 3.8 cm 2.1 - 4.0 LV PW thickness, ED, PLAX 1.3 cm LV end-diastolic volume, 1-p A2C 131 ml LV ejection fraction, 1-p A2C 55 % LV end-diastolic volume, 1-p A4C 113 ml LV ejection fraction, 1-p A4C 50 % LV e', lateral 0.044 m/sec LV E/e', lateral 15 LV e', medial 0.051 m/sec LV E/e', medial 13 LV e', average 0.047 m/sec LV E/e', average 14 Ventricular septum Value Reference IVS thickness, ED, PLAX 1.3 cm LVOT Value Reference LVOT ID, A-P 2.2 cm LVOT area 3.8 cm^2 LVOT peak velocity, S 1.01 m/sec LVOT mean velocity, S 0.79 m/sec LVOT VTI, S 27.9 cm LVOT peak gradient, S 4 mm Hg LVOT mean gradient, S 2.8 mm Hg Stroke volume (SV), LVOT DP 106 ml Stroke index (SV/bsa), LVOT DP 56 ml/m^2 Aortic valve Value Reference Aortic valve peak velocity, S 5.9 m/sec Aortic valve mean velocity, S 4.55 m/sec Aortic valve VTI, S 156.0 cm Aortic mean gradient, S 88.7 mm Hg Aortic peak gradient, S 137.2 mm Hg VTI ratio, LVOT/AV 0.18 Aortic valve area, VTI 0.7 cm^2 Velocity ratio, peak, LVOT/AV 0.17 Aortic valve area, peak velocity 0.7 cm^2 Velocity ratio, mean, LVOT/AV 0.17 Aortic valve area, mean velocity 0.7 cm^2 Aortic valve area/bsa, mean velocity 0.3 cm^2/m^2 Aorta Value Reference Aortic root ID, ED 3.0 cm Ascending aorta ID, A-P, S 3.1 cm Left atrium Value Reference LA ID, A-P, ES 3.3 cm LA ID/bsa, A-P 1.7 cm/m^2 <=2.2 LA area, ES, A4C (H) 24.8 cm^2 8.8 - 23.4 LA area, ES, A2C 24 cm^2 LA volume/bsa, ES, 1-p A4C 46 ml/m^2 LA volume, ES, 2-p 79 ml LA volume/bsa, ES, 2-p 41 ml/m^2 LA/aortic root ratio 1.07 Mitral valve Value Reference Mitral E-wave peak velocity 0.66 m/sec Mitral A-wave peak velocity 1 m/sec Mitral deceleration time (L) 134 ms 150 - 230 Mitral pressure half-time 39 ms Mitral E/A ratio, peak 0.66 Mitral valve area, PHT, DP 5.7 cm^2 Pulmonary veins Value Reference Pulmonary vein peak velocity, S 0.52 m/sec Pulmonary vein peak velocity, D 0.4 m/sec Pulmonary vein velocity ratio, peak, 1.3 S/D Pulmonary vein A-wave reversal peak 0.36 m/sec velocity Tricuspid valve Value Reference Tricuspid regurg peak velocity 2.2 m/sec Tricuspid peak RV-RA gradient 19.8 mm Hg Right atrium Value Reference RA area, ES, A4C 17.9 cm^2 8.3 - 19.5 Legend: (L) and (H) debbi values outside specified reference range. I have personally reviewed the images and have reviewed and edited the reported findings. Electronically signed by Beverley Rae 07/07/2018 12:33
== END 2018-07-07 01:19 ==
PROVIDERS: PCP Family Medicine; Visit Provider Internal Medicine
DX: I35.0 Nonrheumatic aortic (valve) stenosis (principal); R55 Syncope and collapse; I51.7 Cardiomegaly
CPT/HCPCS: 93306

== ENCOUNTER → 2018-07-13 13:14 | Outpatient (BNVA) | payer OTHER, SELFPAY | PROVIDERS: PCP Family Medicine; Visit Provider Internal Medicine Interventional Cardiology | DX: I35.0 Nonrheumatic aortic (valve) stenosis (principal); I48.0 Paroxysmal atrial fibrillation; R55 Syncope and collapse; I47.2 Ventricular tachycardia; I10 Essential (primary) hypertension | CPT/HCPCS: 99205; 99215 ==

== ENCOUNTER 2018-07-13 15:00 | Outpatient (CLI) | payer OTHER, SELFPAY | END 2018-07-13 15:20 | PROVIDERS: PCP Family Medicine; Visit Provider Internal Medicine Interventional Cardiology | DX: I35.0 Nonrheumatic aortic (valve) stenosis (principal); I48.0 Paroxysmal atrial fibrillation; R55 Syncope and collapse; I10 Essential (primary) hypertension | CPT/HCPCS: 93005; 93010 ==

== ENCOUNTER 2018-07-27 09:15 | Outpatient (CLI) | payer OTHER, SELFPAY | END 2018-07-27 09:35 | PROVIDERS: PCP Family Medicine; Referring Provider Family Medicine; Visit Provider Internal Medicine Interventional Cardiology | DX: I48.0 Paroxysmal atrial fibrillation (principal); I47.2 Ventricular tachycardia | CPT/HCPCS: 93228 ==

== ENCOUNTER 2018-08-10 08:09 | Outpatient (CLI) | payer OTHER, SELFPAY | END 2018-08-10 08:29 | PROVIDERS: PCP Family Medicine; Visit Provider Internal Medicine Interventional Cardiology | DX: I35.0 Nonrheumatic aortic (valve) stenosis (principal); I48.91 Unspecified atrial fibrillation; R55 Syncope and collapse; I47.2 Ventricular tachycardia | CPT/HCPCS: 99214; 93005; 93010 ==

== ENCOUNTER 2018-08-12 13:43 | Outpatient (CLI) | payer OTHER, SELFPAY ==
--- NOTE | 2018-08-12 13:45 | DI.RAD_ITS ---
SYMPTOMS/DIAGNOSIS: FEVER, R50.9 PA AND LATERAL CHEST: The patient is status post AVR and the heart is not enlarged. There are small regions of increased density in both lower lobes, which could represent atelectasis. The possibility of a left lower lobe pneumonitis could not be excluded.
[2018-08-12 14:19] LABS: Bilirubin Negative (Negative); Blood Moderate (Negative); Clarity Clear; Glucose Negative (Negative); Ketones Negative (Negative); Leukocyte Esterase Negative (Negative); Nitrite Negative (Negative); Specific Gravity 1.015 (1.005-1.025); Urobilinogen 0.2 EU/dL (Up TO 0.2)
[2018-08-12 14:22] LABS: Abs Immature Grans 0.03 k/cumm (0.0-0.09); Absolute Basophil Count 0.01 k/cumm (0.0-0.2); Absolute Lymphocyte Count 0.68 k/cumm (1.2-3.4); Absolute Monocyte Count 0.58 k/cumm (0.11-0.7); Absolute Neutrophil Count 7.92 k/cumm (1.2-6.7); Basophils % 0.1; Eosinophils % 1.1; HCT 27.7 % (40.0-50.0); HGB 9.1 g/dL (13.5-17.5); Immature Grans % 0.3; Lymphocytes % 7.3; Mean Corp. HGB Concentration 32.9 g/dL (32.0-36.0); Mean Corpuscular Hemoglobin 30.5 pg (27.0-33.0); Monocytes % 6.2; Platelet Count 350 x1000/uL (130-400); RBC 2.98 m/cumm (4.50-6.00); RBC Distribution Width 12.6 % (11.8-14.1); White Blood Cell Count 9.32 k/cumm (4.4-10.8)
[2018-08-12 14:34] LABS: Diff Comment RBC Morph Reviewed; Polychromasia Present
[2018-08-12 14:48] LABS: Epithelial Cells Rare HPF (Negative); Other Cells Few Renal (Negative); RBC >50 (0-2)
[2018-08-12 14:49] LABS: Bacteria Negative HPF (Negative); C & S Indicated? No; Casts Negative LPF (Negative); Crystals Negative HPF (Negative); Mucus Trace (Negative)
== END 2018-08-12 14:03 ==
PROVIDERS: PCP Family Medicine; Visit Provider Family Medicine
DX: R50.9 Fever, unspecified (principal); R91.8 Other nonspecific abnormal finding of lung field
CPT/HCPCS: 36415; 71046; 81003; 81015; 85025

== ENCOUNTER 2018-08-25 02:11 | Outpatient (CLI) | payer OTHER, SELFPAY ==
--- NOTE | 2018-08-31 11:45 | HOLTER_ITS ---
DATE OF DICTATION: August 29, 2018 DATE OF RECORDING: August 25, 2018 DATE OF ANALYSIS: August 27, 2018 REFERRING PHYSICIAN: Ochoa Hardy M.D. INDICATION: AFib FINDINGS: 1. Baseline sinus rhythm, 60-114 bpm, average 77 bpm. 2. Rare PVC, 0.2%, few couplets, no VT. 3. Rare PAC, < 0.1%, two SVT runs, maximally 6 beats, maximally 128 bpm, no AF. 4. No bradycardia or pauses. 5. No symptoms recorded.
== END 2018-08-25 02:31 ==
PROVIDERS: PCP Family Medicine; Visit Provider Internal Medicine Interventional Cardiology
DX: I48.91 Unspecified atrial fibrillation (principal); I47.1 Supraventricular tachycardia
CPT/HCPCS: 93225

== ENCOUNTER 2018-08-27 12:46 | Outpatient (CLI) | payer OTHER, SELFPAY | END 2018-08-27 13:06 | PROVIDERS: PCP Family Medicine; Visit Provider Family Medicine | DX: I48.91 Unspecified atrial fibrillation (principal); I47.1 Supraventricular tachycardia | CPT/HCPCS: 93226 ==

== ENCOUNTER 2018-08-29 17:42 | Outpatient (CLI) | payer OTHER, SELFPAY | END 2018-08-29 18:02 | PROVIDERS: PCP Family Medicine; Referring Provider Family Medicine; Visit Provider Internal Medicine Cardiovascular Disease | DX: I48.91 Unspecified atrial fibrillation (principal); I47.1 Supraventricular tachycardia | CPT/HCPCS: 93227 ==

== ENCOUNTER 2018-09-28 09:42 | Outpatient (CLI) | payer OTHER, SELFPAY | END 2018-09-28 10:02 | PROVIDERS: PCP Family Medicine; Visit Provider Internal Medicine Interventional Cardiology | DX: I35.0 Nonrheumatic aortic (valve) stenosis (principal); I48.91 Unspecified atrial fibrillation; Z79.01 Long term (current) use of anticoagulants; Z95.2 Presence of prosthetic heart valve | CPT/HCPCS: 99214; 93005; 93010 ==

== ENCOUNTER 2019-01-07 02:11 | Outpatient (CLI) | payer OTHER, SELFPAY ==
[2019-01-07 11:30] LABS: Anion Gap 10.8 mmol/L (3-11); BUN 23 mg/dL (7-18); CO2 24.2 mmol/L (21.0-32.0); CREATININE 0.85 mg/dL (0.70-1.30); Calcium 9.5 mg/dL (8.5-10.1); Chloride 102 mmol/L (98-107); Glucose 89 mg/dL (70-100); Potassium 4.5 mmol/L (3.5-5.1); Sodium 137 mmol/L (136-145)
== END 2019-01-07 02:31 ==
PROVIDERS: PCP Family Medicine; Visit Provider Family Medicine
DX: I10 Essential (primary) hypertension (principal)
CPT/HCPCS: 36415; 80048

== ENCOUNTER 2019-06-25 11:37 | Outpatient (REF) | payer OTHER, SELFPAY ==
[2019-06-25 13:34] LABS: Bilirubin Negative (Negative); Blood Small (Negative); Clarity Clear (Clear); Glucose Negative (Negative); Ketones Negative (Negative); Leukocyte Esterase Negative (Negative); Nitrite Negative (Negative); Urobilinogen 0.2 EU/dL (Up TO 0.2)
[2019-06-25 14:15] LABS: Bacteria Rare HPF (Negative); C & S Indicated? No; Casts Negative LPF (Negative); Crystals Negative HPF (Negative); Epithelial Cells Negative HPF (Negative); Mucus Negative (Negative); Other Cells Negative (Negative); WBC Negative HPF (0-5)
== END 2019-06-25 11:57 ==
LOC: LBN 11:37
PROVIDERS: PCP Family Medicine; Visit Provider Family Medicine
DX: R30.0 Dysuria (principal)
CPT/HCPCS: 81003; 81015

== ENCOUNTER → 2019-10-04 12:52 | Outpatient (BNVA) | payer OTHER, SELFPAY | PROVIDERS: PCP Family Medicine; Referring Provider Family Medicine; Visit Provider Internal Medicine Cardiovascular Disease | DX: I48.0 Paroxysmal atrial fibrillation (principal); I35.0 Nonrheumatic aortic (valve) stenosis; Z95.2 Presence of prosthetic heart valve; Z79.01 Long term (current) use of anticoagulants | CPT/HCPCS: 99443; 99213 ==

== ENCOUNTER 2020-02-09 02:35 | Outpatient (CLI) | payer OTHER, SELFPAY ==
[2020-02-09 12:23] LABS: Abs Immature Grans 0.01 10^3/uL (0.0-0.06); Absolute Basophil Count 0.04 10^3/uL (0.0-0.2); Absolute Eosinophil Count 0.22 10^3/uL (0.0-0.7); Absolute Lymphocyte Count 1.36 10^3/uL (1.2-3.4); Absolute Monocyte Count 0.61 10^3/uL (0.1-0.8); Absolute Neutrophil Count 5.34 10^3/uL (1.2-6.7); Basophils % 0.5; Eosinophils % 2.9; HCT 44.1 % (40.0-50.0); Immature Grans % 0.1; Lymphocytes % 17.9; MCH 30.8 pg (27.0-33.0); MCV 90.6 fL (80-95); MPV 10.2 fL (8.0-11.0); Neutrophils % 70.6; Nucleated RBC 0 %; Platelet Count 323 10^3/uL (130-400); RBC 4.87 10^6/uL (4.36-5.78); RDW 11.9 % (11.8-14.1); RDW-SD 39.5 fL; WBC 7.58 10^3/uL (4.4-10.8)
[2020-02-09 12:34] LABS: ALT 18 U/L (16-63); AST 16 U/L (15-37); Albumin 4.3 g/dL (3.4-5.0); Alkaline Phosphatase 108 U/L (46-116); Anion Gap 11.2 mmol/L (3-11); BUN 15 mg/dL (7-18); Bilirubin, Total 0.8 mg/dL (0.2-1.0); CO2 23.8 mmol/L (21.0-32.0); CREATININE 0.78 mg/dL (0.70-1.30); Calcium 8.9 mg/dL (8.5-10.1); Calculated LDL 52 mg/dL (<100); Chloride 103 mmol/L (98-107); Cholesterol 121 mg/dL (<200); Glucose 89 mg/dL (74-106); HDL Cholesterol 58 mg/dL (40-60); Potassium 3.7 mmol/L (3.5-5.1); Sodium 138 mmol/L (136-145); Total Protein 7.3 g/dL (6.4-8.2); Triglyceride 56 mg/dL (<150)
== END 2020-02-09 02:55 ==
PROVIDERS: PCP Family Medicine; Visit Provider Family Medicine
DX: I10 Essential (primary) hypertension (principal)
CPT/HCPCS: 36415; 80053; 80061; 85025

== ENCOUNTER → 2020-02-22 07:48 | Outpatient (BNVA) | payer OTHER, SELFPAY | PROVIDERS: PCP Family Medicine; Referring Provider Family Medicine; Visit Provider Urology | DX: R30.0 Dysuria (principal); R31.9 Hematuria, unspecified; Z87.442 Personal history of urinary calculi; Z98.890 Other specified postprocedural states | CPT/HCPCS: 81003; 99203; 99214 ==

== ENCOUNTER 2020-05-26 02:54 | Outpatient (CLI) | payer OTHER, SELFPAY ==
--- NOTE | 2020-05-26 07:24 | DI.CT_ITS ---
EXAM: CT ABDOMEN PELVIS WO/W CLINICAL HISTORY: hematuria,calculus of kidney,r31.9,n20.0 TECHNIQUE: CT examination of the abdomen pelvis was performed utilizing CT urogram protocol with non contrast CT followed by venous phase 7 minutes delayed phase imaging with intravenous infusion of 100 cc of Omnipaque 350. COMPARISON: No exams were available for comparison FINDINGS: Images obtained through the lung bases are unremarkable. Noncontrast CT shows multiple calculi measuring less than 1 millimeter in diameter in the left kidney which are nonobstructing.. Images obtained through the lung bases are unremarkable. The liver is unremarkable in appearance. The spleen is unremarkable in appearance. The pancreas is unremarkable in appearance. Gallbladder and bile ducts appear normal. Abdominal aorta and major visceral branches appear intact. Minimal fat containing umbilical and bilateral inguinal hernias noted. No evidence of abdominal or pelvic adenopathy. No focal bowel pathology. The kidneys are normal in size and shape. There is normal symmetrical renal cortical enhancement. T here is no evidence of a renal mass, or hydronephrosis. Urinary bladder has irregularly thickened. This is a nonspecific could be associated with cystitis. Possibility small bladder wall neoplasms, particularly bladder floor, is not excluded on the basis o f this examination. Prostate is moderately enlarged. IMPRESSION: Multiple tiny nonobstructing left renal calculi. Irregularly thickened urinary bladder wall, possible cystitis and/or chronic bladder outlet obstructi on. Neoplastic disease not excluded, additional evaluation with cystoscopy should be considered. RADIATION DOSE DELIVERED: 2,115.27mGy.cm Total DLP 2,115.27mGy.cm Total DLP RADIATION OPTIMIZATION: All CT scans at this facility use at least one of these dose optimization te chniques: automated exposure control; mA and/or kV adjustment per patient size (includes targeted exa ms where dose is matched to clinical indication); or iterative reconstruction.
[2020-05-26] MEDS: Normal Saline - Diluent 50 ML VIAL IV (09:23)
[2020-05-26] MEDS: Omnipaque 350 MG/ML 100 ML BTL IJ (09:29)
== END 2020-05-26 03:14 ==
PROVIDERS: PCP Family Medicine; Visit Provider Urology
DX: N20.0 Calculus of kidney (principal)
CPT/HCPCS: 99213; 74178; J3490

== ENCOUNTER → 2020-06-05 12:44 | Outpatient (BNVA) | payer OTHER, SELFPAY | PROVIDERS: PCP Family Medicine; Referring Provider Family Medicine; Visit Provider Urology | DX: R30.0 Dysuria (principal); R31.0 Gross hematuria | CPT/HCPCS: 52000; 99213 ==

== ENCOUNTER → 2020-08-03 13:41 | Outpatient (BNVA) | payer OTHER, SELFPAY | PROVIDERS: PCP Family Medicine; Referring Provider Family Medicine; Visit Provider Urology | DX: R30.0 Dysuria (principal); R31.0 Gross hematuria; Z79.899 Other long term (current) drug therapy | CPT/HCPCS: 99214 ==

== ENCOUNTER → 2020-10-10 13:05 | Outpatient (BNVA) | payer OTHER, SELFPAY | PROVIDERS: PCP Family Medicine; Referring Provider Family Medicine; Visit Provider Internal Medicine Cardiovascular Disease | DX: I48.0 Paroxysmal atrial fibrillation (principal); Z95.818 Presence of other cardiac implants and grafts; Z79.899 Other long term (current) drug therapy | CPT/HCPCS: 99214; 99213 ==

== ENCOUNTER → 2020-10-24 07:49 | Outpatient (BNVA) | payer OTHER, SELFPAY | PROVIDERS: PCP Family Medicine; Visit Provider Urology | DX: R30.0 Dysuria (principal) | CPT/HCPCS: 99213 ==

== ENCOUNTER 2021-02-28 04:03 | Outpatient (CLI) | payer MEDICARE, SELFPAY ==
[2021-02-28 08:07] LABS: HCT 42.6 % (40.0-50.0); HGB 14.3 g/dL (13.5-17.5); MCHC 33.6 % (32.0-36.0); MCV 92.4 fL (80-95); MPV 9.6 fL (8.0-11.0); Platelet Count 249 10^3/uL (130-400); RBC 4.61 10^6/uL (4.36-5.78); RDW 13.1 % (11.8-14.1); WBC 4.28 10^3/uL (4.4-10.8)
[2021-02-28 09:49] LABS: CREATININE 0.9 mg/dL (0.70-1.30)
== END 2021-02-28 04:04 | disposition home or self-care (01) ==
LOC: LBO 04:03
PROVIDERS: PCP Family Medicine; Visit Provider Family Medicine
DX: R53.83 Other fatigue (principal); I10 Essential (primary) hypertension
CPT/HCPCS: 36415; 85027; 82565

== ENCOUNTER → 2021-10-09 08:40 | Outpatient (BNVA) | payer OTHER, SELFPAY | PROVIDERS: PCP Family Medicine; Referring Provider Family Medicine; Visit Provider Internal Medicine Cardiovascular Disease | DX: Z79.01 Long term (current) use of anticoagulants (principal); Z98.890 Other specified postprocedural states; I48.0 Paroxysmal atrial fibrillation; I35.0 Nonrheumatic aortic (valve) stenosis | CPT/HCPCS: 99214 ==

== ENCOUNTER → 2021-10-23 07:51 | Outpatient (BNVA) | payer OTHER, SELFPAY | PROVIDERS: PCP Family Medicine; Referring Provider Family Medicine; Visit Provider Urology | DX: R30.0 Dysuria (principal) | CPT/HCPCS: 99213 ==

== ENCOUNTER 2022-02-06 03:09 | Outpatient (CLI) | payer MEDICARE, SELFPAY ==
[2022-02-06 12:16] LABS: HCT 43.8 % (40.0-50.0); HGB 14.9 g/dL (13.5-17.5); MCH 31.4 pg (27.0-33.0); MCV 92 fL (80-95); MPV 10.3 fL (8.0-11.0); Platelet Count 231 10^3/uL (130-400); RBC 4.75 10^6/uL (4.36-5.78); RDW 11.9 % (11.8-14.1); RDW-SD 40.8 fL; WBC 5.11 10^3/uL (4.4-10.8)
[2022-02-06 12:27] LABS: CREATININE 0.8 mg/dL (0.70-1.30); Estimated GFR 94.03 (mL/min/1.73m2)
== END 2022-02-06 03:10 | disposition home or self-care (01) ==
LOC: LOS 03:09
PROVIDERS: PCP Family Medicine; Visit Provider Family Medicine
DX: I10 Essential (primary) hypertension (principal); R53.83 Other fatigue
CPT/HCPCS: 36415; 85027; 82565

== ENCOUNTER 2022-10-01 07:56 | Outpatient (CLI) | payer MEDICARE, SELFPAY ==
--- NOTE | 2022-10-01 07:45 | RT.EKG_ITS ---
APPROVED REPORT Exam: Resting ECG Reason for Exam: PAF Patient Location: O HR:58 bpm ECG Measurements Heart Rate 58 AXIS WI 166 P 4 QRSd 106 QRS 12 QT 414 T 35 QTc 407 Conclusion Sinus rhythm...normal P axis, V-rate 50- 99 Normal Electrocardiogram
== END 2022-10-01 07:57 | disposition home or self-care (01) ==
LOC: DI.CARD 07:57
PROVIDERS: PCP Family Medicine; Visit Provider Internal Medicine Cardiovascular Disease
DX: I48.0 Paroxysmal atrial fibrillation (principal); R55 Syncope and collapse
CPT/HCPCS: 93010

== ENCOUNTER → 2022-10-01 08:16 | Outpatient (BNVA) | payer MEDICARE, SELFPAY | PROVIDERS: PCP Family Medicine; Visit Provider Urology | DX: R30.0 Dysuria (principal); I10 Essential (primary) hypertension | CPT/HCPCS: 99213 ==

== ENCOUNTER → 2022-10-01 08:42 | Outpatient (BNVA) | payer MEDICARE, SELFPAY | PROVIDERS: PCP Family Medicine; Visit Provider Internal Medicine Cardiovascular Disease | DX: Z79.01 Long term (current) use of anticoagulants (principal); Z95.2 Presence of prosthetic heart valve; I48.0 Paroxysmal atrial fibrillation; I35.0 Nonrheumatic aortic (valve) stenosis | CPT/HCPCS: 93005; 99213 ==

== ENCOUNTER 2023-02-04 08:39 | Outpatient (CLI) | payer MEDICARE, SELFPAY ==
[2023-02-04 12:24] LABS: HCT 40.4 % (40.0-50.0); HGB 14.1 g/dL (13.5-17.5); MCH 32.1 pg (27.0-33.0); MCHC 34.9 % (32.0-36.0); MCV 92 fL (80-95); MPV 10.4 fL (8.0-11.0); Platelet Count 228 10^3/uL (130-400); RBC 4.39 10^6/uL (4.36-5.78); RDW 12.1 % (11.8-14.1); RDW-SD 41.1 fL; WBC 6.35 10^3/uL (4.4-10.8)
== END 2023-02-04 08:40 | disposition home or self-care (01) ==
LOC: LOS 08:39
PROVIDERS: PCP Family Medicine; Referring Provider Family Medicine; Visit Provider Family Medicine
DX: R53.83 Other fatigue (principal)
CPT/HCPCS: 36415; 85027

== ENCOUNTER → 2023-09-30 07:42 | Outpatient (BNVA) | payer MEDICARE, SELFPAY | PROVIDERS: PCP Family Medicine; Referring Provider Family Medicine; Visit Provider Urology | DX: R30.0 Dysuria (principal) | CPT/HCPCS: 99214 ==

== ENCOUNTER → 2023-09-30 07:43 | Outpatient (BNVA) | payer MEDICARE, SELFPAY | PROVIDERS: PCP Family Medicine; Visit Provider Internal Medicine Cardiovascular Disease | DX: I48.0 Paroxysmal atrial fibrillation (principal); I35.0 Nonrheumatic aortic (valve) stenosis | CPT/HCPCS: 99213 ==

== ENCOUNTER 2024-02-19 00:04 | Outpatient (CLI) | payer MEDICARE, SELFPAY ==
--- NOTE | 2024-02-19 06:45 | DI.CT_ITS ---
Exam(s) CT HEAD WO EXAM: CT HEAD WO CLINICAL HISTORY: evaluate bleed, head injury, S09.90XA. TECHNIQUE: Imaging Protocol: Axial computed tomography images with coronal and sagittal reformatted images were created and reviewed COMPARISON: CT CT HEAD CERVICAL SPINE WO from 06/16/2018 FINDINGS: Ventricles and Extra axial spaces: Normal in size and morphology for the patient's age. Hemorrhage: None. Cerebral parenchyma: No evidence of acute infarct or mass. Mild atrophy. Midline shift: None. Brainstem/Cerebellum: Normal. Calvarium: Normal. Visualized Paranasal sinuses:Clear. Mastoids: Clear. Soft Tissues: Unremarkable. ORBITS: Unremarkable. PITUITARY: Not enlarged. IMPRESSION: No acute intracranial process. RADIATION DOSE DELIVERED: 910.76mGy.cm Total DLP DATA REPOSITORY: All CT scans at this facility are submitted to the National Radiology Data Registry (NRDR) Dose Index Registry (DIR) with the [employer] (A[employer]). RADIATION OPTIMIZATION: All CT scans at this facility use at least one of these dose optimization te chniques: automated exposure control; mA and/or kV adjustment per patient size (includes targeted exa ms where dose is matched to clinical indication); or iterative reconstruction.
== END 2024-02-19 00:24 ==
LOC: DI 00:04
PROVIDERS: PCP Family Medicine; Visit Provider Nurse Practitioner Family
DX: S09.90XA Unspecified injury of head, initial encounter (principal); X58.XXXA Exposure to other specified factors, initial encounter
CPT/HCPCS: 70450

== ENCOUNTER 2024-04-22 12:32 | Emergency (ER) | payer MEDICARE, SELFPAY ==
--- NOTE | 2024-04-22 12:45 | DI.RAD_ITS ---
Exam(s) XR KNEE RT 3V AP,LAT,ALYSE EXAM: XR KNEE RT 3V AP,LAT,ALYSE CLINICAL HISTORY: knee injury. TECHNIQUE: 2D digital imaging was performed. Three views. COMPARISON: No exams were available for comparison FINDINGS: BONES: No acute fracture is present. No bony destructive lesion is seen. There are patellar entheso phytes. JOINTS: The joint spaces are maintained. No joint effusion is seen. The patella appears somewhat h igh riding. SOFT TISSUE: There is soft tissue thickening in the region of the patellar tendon. the findings are s uspicious for patellar tendon tear. IMPRESSION: Findings suspicious for patellar tendon tear. No evidence of fracture. DATA REPOSITORY: RADIATION DOSE DELIVERED:
[2024-04-22 12:46] VITALS: BP 163/75; PULSE 100; RESP 18; TEMP 36.5; O2SAT 95
--- NOTE | 2024-04-22 14:06 | W.ED.GENAD ---
Discharge Plan Disposition Patient Disposition: Home Discharge Details Clinical Impression: Acute knee pain Primary Care Provider: Nicholas Whitmore ED Provider: Shakila Alarcon Home Meds and New Rx's Prescriptions: No Action finasteride 5 mg tablet See Rx Instructions .ROUTE .COMPLEX Qty: 100 2RF Dose Instruction: TAKE 1 TABLET BY MOUTH DAILY FOR PROSTATE Rx Instructions: TAKE 1 TABLET BY MOUTH DAILY FOR PROSTATE diclofenac potassium 50 mg tablet See Rx Instructions .ROUTE .COMPLEX Qty: 200 2RF Dose Instruction: TAKE 1 TABLET BY MOUTH TWICE DAILY Rx Instructions: TAKE 1 TABLET BY MOUTH TWICE DAILY multivitamin [Daily Multi-Vitamin] 1 EACH tablet 1 tab PO DAILY metoprolol tartrate 25 mg tablet 25 mg PO BID Qty: 180 2RF Eliquis 5 mg tablet 5 mg PO BID Qty: 180 3RF atorvastatin 40 mg tablet 40 mg PO QPM Qty: 90 4RF gemfibrozil 600 mg tablet 600 mg PO BID Qty: 180 4RF amoxicillin 500 mg capsule 2,000 mg PO ONCE PRN (Reason: dental procedures) Qty: 16 4RF Rx Instructions: for dental visits Discharge Instructions Additional Instructions: Please follow-up with orthopedics call tomorrow to schedule an appointment; after the recommended timeframe. Your x-ray is negative for fracture, however there is suspicion for a patellar tendon tear. Please use the knee immobilizer and crutches to maintain immobilization. You may use Tylenol 650 mg every 6 hours for discomfort. Elevate your leg above heart level and use ice for 15-20 minutes at a time every hour or two. Return to emergency care if you develop new numbness in your leg, severe pain despite tylenol/ice/elevation, or if you are very worried you need to be rechecked again immediately Referrals: [facility] [Provider Group] Discharge Data Discharge Date/Time-TO BE ENTERED AT DEPARTURE: 04/22/24 14:40 HPI General Date/Time Provider Initiated Documentation: 04/22/24 13:24. HPI Narrative: Bart is a 74 year old male who presents to the emergency department today for evaluation of R knee pain. He reports he fell on his bottom while walking on ice and twisted his knee, heard a pop. This occurred this morning. Creatinine unable to fully bear weight since then, feels like his knee is a and causes pain. Does have pain with flexion of the knee. Pain is located to the medial side of the knee; there is mild swelling. No distal numbness/tingling. He is on Eliquis for anticoagulation. Denies head injury, neck pain, back pain, other injuries. Past medical history is significant for [] Physical exam reassuring. Patient has pain with palpation of the medial joint line. Mild swelling, no overlying abrasion/lacerations or ecchymosis. Pain with flexion of the knee. No obvious varus or valgus laxity. No distal swelling. Sensation grossly intact distally. He is able to bear some weight, but has been walking with a cane and worsening knee brace. D/dx includes but is not limited to: Fracture, ligamentous tear, meniscal injury, other musculoskeletal injury. No red flags concerning for neurovascular compromise or dislocation I independently interpreted the following tests: Right knee x-ray, no obvious fractures. Radiology did note concern for patellar tendon rupture While in the emergency department, Bart received knee immobilizer. He declined crutches, as he did not feel safe on these. He does have a walker at home that he can use. Reviewed discharge instructions with patient, including symptomatic management and red flags indicating need for return to emergency care. Orthopedics referral provided Related Data Home Medications ?Medication ?Instructions ?Recorded ?Confirmed multivitamin (Daily Multi-Vitamin 1 tab PO DAILY 11/26/13 03/24/24 tablet) diclofenac potassium 50 mg tablet See Rx Instructions .Route 09/30/23 03/24/24 .COMPLEX #200 tabs finasteride 5 mg tablet See Rx Instructions .Route 09/30/23 03/24/24 .COMPLEX #100 tabs metoprolol tartrate 25 mg tablet 25 mg PO BID #180 tabs 10/08/23 03/24/24 apixaban 5 mg tablet (Eliquis) 5 mg PO BID #180 tabs 02/26/24 03/24/24 atorvastatin 40 mg tablet 40 mg PO QPM #90 tabs 02/26/24 03/24/24 gemfibrozil 600 mg tablet 600 mg PO BID #180 tab-caps 02/26/24 03/24/24 amoxicillin 500 mg capsule 2,000 mg (4 x 500 mg) PO ONCE PRN 03/10/24 03/24/24 dental procedures #16 caps Previous Rx's ?Medication ?Instructions ?Recorded diclofenac potassium 50 mg tablet See Rx Instructions .Route 09/30/23 .COMPLEX #200 tabs finasteride 5 mg tablet See Rx Instructions .Route 09/30/23 .COMPLEX #100 tabs metoprolol tartrate 25 mg tablet 25 mg PO BID #180 tabs 10/08/23 apixaban 5 mg tablet (Eliquis) 5 mg PO BID #180 tabs 02/26/24 atorvastatin 40 mg tablet 40 mg PO QPM #90 tabs 02/26/24 gemfibrozil 600 mg tablet 600 mg PO BID #180 tab-caps 02/26/24 amoxicillin 500 mg capsule 2,000 mg (4 x 500 mg) PO ONCE PRN 03/10/24 dental procedures #16 caps Allergies Allergy/AdvReac Type Severity Reaction Status Date / Time fluticasone Allergy Skin Rash Verified 03/24/24 08:13 tamsulosin AdvReac Intermediate Dysuria Verified 02/10/24 10:03 hydrocodone AdvReac Unknown Nausea Verified 02/10/24 10:03 General Stated Complaint: Orthopedic IAIN: 4 Review of Systems Narrative: see HPI Exam Const General: cooperative, healthy appearing, comfortable, no acute distress, well developed and well groomed Nutritional Appearance: average body habitus Orientation: alert and oriented x3 HENMT Head: normal to inspection and atraumatic Resp Effort & Inspection: normal respiratory effort and able to speak in complete sentences Skin General skin exam: no rashes or lesions noted Trauma: no lacerations or abrasions Neuro General: patient alert, patient oriented x3, tone normal and moves all extremities Sensory Exam: no sensory deficits noted Extrem Right lower extremity: knee Details: tenderness Location: of the medial joint line, swelling (mild), abnormal ROM Details: pain with active ROM during Details: in flexion and knee ligament exam normal; no abrasions, no lacerations, no ecchymosis, no crepitus, no foreign bodies, no penetrating wound, no deformity and no unusual warmth Course Vital Signs Vital signs: Vital Signs Temperature 36.5 C 04/22/24 12:46 Pulse 100 H 04/22/24 12:46 Respiratory Rate 18 04/22/24 12:46 Blood Pressure 163/75 H 04/22/24 12:46 Pulse Oximetry 95 04/22/24 12:46 Temperature 36.5 C 04/22/24 12:46 Temperature Source Oral 04/22/24 12:46 Pulse 100 H 04/22/24 12:46 Respiratory Rate 18 04/22/24 12:46 Blood Pressure 163/75 H 04/22/24 12:46 Blood Pressure Position Sitting 04/22/24 12:46 Pulse Oximetry 95 04/22/24 12:46 Oxygen Delivery Method Room Air 04/22/24 12:46 Oxygen Flow Rate 0 04/22/24 12:46 Pain Level 4 04/22/24 12:46 Medical Decision Making Imaging Data Radiologic Study: Radiologist's impression: Exam(s) XR KNEE RT 3V AP,LAT,ALYSE EXAM: XR KNEE RT 3V AP,LAT,ALYSE CLINICAL HISTORY: knee injury. TECHNIQUE: 2D digital imaging was performed. Three views. COMPARISON: No exams were available for comparison FINDINGS: BONES: No acute fracture is present. No bony destructive lesion is seen. There are patellar enthesophytes. JOINTS: The joint spaces are maintained. No joint effusion is seen. The patella appears somewhat high riding. SOFT TISSUE: There is soft tissue thickening in the region of the patellar tendon. the findings are suspicious for patellar tendon tear. IMPRESSION: Findings suspicious for patellar tendon tear. No evidence of fracture. 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 Syncope (Chronic) Bursitis of right shoulder (Acute 07/22/17) Essential hypertension (Acute 11/19/12) Other and unspecified hyperlipidemia (Acute 10/09/12) Medical History Fever unclear etiology concerning, given recent AVR Elevated troponin High cholesterol Hypertension Heart murmur Surgical History H/O aortic valve replacement Bovine valve knee surgery (~04/2002) Family History Mother , AGE 92 No problems noted. Father , AGE 78 Diabetes Heart disease Brother Diabetes Essential hypertension Heart disease Hyperlipidemia Brother Essential hypertension Hyperlipidemia Brother Diabetes Essential hypertension Hyperlipidemia Maternal Grandfather No problems noted. Paternal Grandfather No problems noted. Maternal Grandmother No problems noted. Paternal Grandmother No problems noted. Social History Smoking/Tobacco Use Status: Never Second Hand Exposure: Yes Smoking risk assessment performed?: Yes Alcohol Intake: current Alcohol Intake frequency: a few times a week Alcohol type: wine Drug use: Never Substance use type: does not use Caregiver/Support person: No Household members: significant other Housing: house Communication Needs: Corrective Lenses Do you need help understanding health information?: Never Pets and animals: No Sexually active: No Do you think of yourself as: straight/heterosexual Current gender identity: male What is your relationship status?: living with partner How often do you talk on the phone with friends or family?: once per week How often do you get together with friends or relatives?: never How often do you attend mandaeism or spiritism services?: decline to answer Do you belong to any clubs or organized social groups?: no Panel score (0-1 are the most socially isolated patients): 1 What type of physical activity do you participate in: walking Duration: 60-90 minutes/day Frequency: 5-6 times per week Karen/Spiritism: No preference Seatbelt use: always Drive intox 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
[2024-04-22 14:32] VITALS: BP 163/75; PULSE 100; RESP 18; TEMP 36.5; O2SAT 95
== END 2024-04-22 14:40 | disposition home or self-care (01) ==
PROVIDERS: Emergency Provider Nurse Practitioner Family; PCP Family Medicine
DX: M25.561 Pain in right knee (principal); I10 Essential (primary) hypertension; I48.0 Paroxysmal atrial fibrillation; E78.00 Pure hypercholesterolemia, unspecified; Z95.2 Presence of prosthetic heart valve; Z79.01 Long term (current) use of anticoagulants
CPT/HCPCS: 73562; 99283

== ENCOUNTER → 2024-04-26 09:59 | Outpatient (BNVA) | payer MEDICARE, SELFPAY | PROVIDERS: PCP Family Medicine; Referring Provider Family Medicine | DX: S86.811A Strain of other muscle(s) and tendon(s) at lower leg level, right leg, initial encounter (principal); W00.9XXA Unspecified fall due to ice and snow, initial encounter; R01.1 Cardiac murmur, unspecified; Z95.2 Presence of prosthetic heart valve | CPT/HCPCS: 99214 ==

== ENCOUNTER 2024-04-30 09:04 | Day surgery (SDC) | payer MEDICARE, SELFPAY ==
[2024-04-30] VITALS (22 sets, daily range): BP systolic 111–137; BP diastolic 55–69; PULSE 63–83; RESP 13–21; TEMP 36.1–36.6; O2SAT 98–100; BMI 23.4
--- NOTE | 2024-04-30 07:26 | W.PM.DSUDISC ---
Date of service: 04/30/24 Discharge Plan Disposition Patient Disposition: Home Condition: Good Discharge Details Reason For Visit: Right patellar tendon rupture Attending Provider: Adarsh Méndez Primary Care Provider: Nicholas Whitmore Home Meds and New Rx's Prescriptions: New acetaminophen 500 mg tablet 500 mg PO Q6H PRN (Reason: pain) Qty: 60 2RF celecoxib [Celebrex] 200 mg capsule 200 mg PO BID PRNQty: 60 0RF Rx Instructions: Take one tablet twice daily for pain and inflammation tramadol 50 mg tablet 50 mg PO Q6H PRNQty: 20 0RF Continued finasteride 5 mg tablet See Rx Instructions .ROUTE .COMPLEX Qty: 100 2RF Dose Instruction: TAKE 1 TABLET BY MOUTH DAILY FOR PROSTATE Rx Instructions: TAKE 1 TABLET BY MOUTH DAILY FOR PROSTATE multivitamin [Daily Multi-Vitamin] 1 EACH tablet 1 tab PO DAILY metoprolol tartrate 25 mg tablet 25 mg PO BID Qty: 180 2RF Eliquis 5 mg tablet 5 mg PO BID Qty: 180 3RF atorvastatin 40 mg tablet 40 mg PO QPM Qty: 90 4RF gemfibrozil 600 mg tablet 600 mg PO BID Qty: 180 4RF amoxicillin 500 mg capsule 2,000 mg PO ONCE PRN (Reason: dental procedures) Qty: 16 4RF Rx Instructions: for dental visits Discontinued diclofenac potassium 50 mg tablet See Rx Instructions .ROUTE .COMPLEX Qty: 200 2RF Dose Instruction: TAKE 1 TABLET BY MOUTH TWICE DAILY Rx Instructions: TAKE 1 TABLET BY MOUTH TWICE DAILY Discharge Instructions Additional Instructions: Patellar Tendon Repair Discharge Instructions Activity: You may walk while wearing the knee immobilizer and using crutches for support. Elevate leg as needed to help with swelling and discomfort. Use ice or Cryocuff along the knee as needed. Dressing: Remove the Pravin wrap by 2 days after your surgery and put on the BA stocking given to you from the hospital. Keep the surgical dressing (underneath the PRAVIN wrap) in place for at least one week. After the first week it may be removed and replaced with light gauze and tape or nothing. The wound and dressing may get wet after 3 days but avoid soaking the dressing or otherwise it will need to be changed. Many people prefer covering the dressing with cling wrap (saran wrap) to minimize it from getting soaked. If it gets wet, just pat dry. If it starts to peel off then it will need to be changed. You need to wear knee immobilizer constantly but may remove for hygiene purposes. No active flexion/bending of the knee until your post-operative appointment. Medications: - You should take Tylenol and anti-inflammatory Celebrex as your primary pain control medications. If the Celebrex is too expensive or not covered, please call the office for another alternative (Advil/Ibuprofen or Naproxen/Aleve) - You have been prescribed a stronger pain medication Tramadol for breakthrough pain, take as needed as prescribed. - If you have constipation you should take Colace or Miralax (both [id number]). It takes most people 3-4 days to have a bowel movement. Follow-up: 2 weeks If you have any acute concerns or questions, please do not hesitate to contact the office at [phone]. You may contact Dr. Méndez with any questions after hours through the hospital at [phone] or on his cell phone at [phone]. Stand Alone Forms: Anesthesia Discharge Inst., Meagan Pino ([facility]) Referrals: dAarsh Méndez MD [ [facility] STAFF PHYSICIAN] - 05/13/24 11:00 am Equipment/Supplies: Partial Weight Bearing Crutches and Splint Activity:: Elevate Remove Dressings/Wound Care:: Do Not Remove Shower/Bathe:: Cover Diet:: As Tolerated Discharge Orders Discharge Orders: Discharge Order (Routine); Ordered 04/30/24 Ordered By: Charlene Thomas
[2024-04-30] MEDS: Acetaminophen 500 MG TAB 1000 MG PO (10:30)
[2024-04-30] MEDS: Celecoxib 200 MG CAP 400 MG PO (10:30)
--- NOTE | 2024-04-30 10:38 | W.ANESPRE ---
General Info Date of Service Date Performed: 04/30/24 Height: 5 ft 9 in Weight: 72.1 kg Body Mass Index (BMI): 23.4 Surgical Procedure: Operation Date: 04/30/24 12:55 Proposed Procedure Side Surgeon p Knee Patella Tendon Repair Right Adarsh Méndez MD Meds Allergies and Home Medications Allergies Allergy/AdvReac Type Severity Reaction Status Date / Time fluticasone Allergy Skin Rash Verified 04/30/24 10:18 tamsulosin AdvReac Intermediate Dysuria Verified 04/30/24 10:18 hydrocodone AdvReac Unknown Nausea Verified 04/30/24 10:18 Home Medication ?Medication ?Instructions ?Recorded multivitamin (Daily Multi-Vitamin 1 tab PO DAILY 11/26/13 tablet) finasteride 5 mg tablet See Rx Instructions .Route 09/30/23 .COMPLEX #100 tabs metoprolol tartrate 25 mg tablet 25 mg PO BID #180 tabs 10/08/23 apixaban 5 mg tablet (Eliquis) 5 mg PO BID #180 tabs 02/26/24 atorvastatin 40 mg tablet 40 mg PO QPM #90 tabs 02/26/24 gemfibrozil 600 mg tablet 600 mg PO BID #180 tab-caps 02/26/24 amoxicillin 500 mg capsule 2,000 mg (4 x 500 mg) PO ONCE PRN 03/10/24 dental procedures #16 caps acetaminophen 500 mg tablet 500 mg PO Q6H PRN pain #60 tabs 04/30/24 celecoxib 200 mg capsule (Celebrex) 200 mg PO BID PRN #60 caps 04/30/24 oxycodone 5 mg tablet 5 mg PO Q6H PRN #12 tabs 04/30/24 Current Visit Medications: Current Medications Generic Name Dose Route Start Last Admin Trade Name Freq PRN Reason Stop Dose Admin Acetaminophen 1,000 mg 04/30/24 06:00 04/30/24 10:30 Acetaminophen 500 Mg Tab PO 04/30/24 23:59 1,000 mg PREOP DL Administration Celecoxib 400 mg 04/30/24 06:00 04/30/24 10:30 Celecoxib 200 Mg Cap PO 04/30/24 23:59 400 mg PREOP DL Administration Ringer's Solution 1,000 mls @ 80 mls/hr 04/30/24 06:00 IV 04/30/24 23:59 INFUSION DL Cefazolin Sodium/Dextrose 2 gm in 50 mls @ 100 mls/hr 04/30/24 06:00 Ancef Duplex IVPB 04/30/24 23:59 PREOP DL Tranexamic Acid/Sodium Chloride 1,000 mg in 100 mls @ 600 mls/hr 04/30/24 06:00 IVPB 04/30/24 23:59 PREOP DL IV Miscellaneous Supplies 1 each 04/30/24 06:00 Iv Access IV 04/30/24 23:59 DIRECTED DL Oxycodone HCl 0 mg 04/30/24 07:24 Oxycodone 5 Mg Tab PO 05/30/24 07:23 Q3H PRN PRN Pain Sodium Chloride 0 ml 04/30/24 06:00 Normal Saline Flush 10 Ml Syr IV 04/30/24 23:59 PRN PRN Sodium Chloride 0 ml 04/30/24 06:00 Normal Saline 10 Ml Vial IJ 04/30/24 23:59 DIRECTED PRN Sterile Water 0 ml 04/30/24 06:00 Water,Injection,Sterile 10 Ml Vial IJ 04/30/24 23:59 DIRECTED PRN PFSH Active Problems Active Problems: Problem Status Onset Code Rupture of right patellar tendon Acute 04/22/24 S86.811A Sensorineural hearing loss, bilateral Acute H90.3 Acute pain of left ear Acute H92.02 Diminished hearing Acute H91.90 Dysuria Acute R30.0 Tinnitus of both ears Acute H93.13 PAF (paroxysmal atrial fibrillation) Acute I48.0 Aortic stenosis Chronic I35.0 Syncope Chronic R55 Other and unspecified hyperlipidemia Acute 10/09/12 E78.5 Essential hypertension Acute 11/19/12 I10 Bursitis of right shoulder Acute 07/22/17 M75.51 Medical History Medical History Fever unclear etiology concerning, given recent AVR Elevated troponin High cholesterol Hypertension Heart murmur Surgical History Surgical History H/O aortic valve replacement Bovine valve-2019 knee surgery (~04/2002) Tobacco Smoking/Tobacco Use Status: Never Passive smoking exposure: No Second hand exposure: Yes Alcohol Alcohol Intake: current Alcohol intake frequency: a few times a week Alcohol type: wine Substance Use Substance use: Never Substance use type: does not use Vital Signs and Lab Results Vital Signs Most Recent Vital Signs in EMR: Most Recent Vital Signs Temp Pulse Resp BP Pulse Ox 36.6 C 66 16 130/62 100 04/30/24 10:14 04/30/24 10:14 04/30/24 10:14 04/30/24 10:14 04/30/24 10:14 Lab Results Blood Type / Crossmatch: No Data to Display Complete Blood Count: No Data to Display Complete Metabolic Panel: No Data to Display Liver Function Panel: No Data to Display Coagulation Panel: No Data to Display Cardiac Panel: No Data to Display Arterial Blood Gas: No Data to Display Venous Blood Gas: No Data to Display Pancreas Panel: No Data to Display Thyroid Panel: No Data to Display Infectious Disease: No Data to Display Blood Cultures: No Data to Display Toxicology Panel: No Data to Display Imaging and Studies Imaging and Studies Study information below may be from another EMR and interpreted by another provider. Please see original notes in EMR for more complete details. EKG Summary: Conclusion Sinus rhythm...normal P axis, V-rate 50- 99 Normal Electrocardiogram Stress Test Summary: Myocardial perfusion: Imaging information: gated. Image quality reduced due to diaphragmatic attenuation and subdiaphragmatic activity. Left ventricular size is normal. There is a small sized, moderately intense, fixed defect involving the apical wall(s). This suggests small myocardial infarction in the distribution of the left anterior descending coronary artery. Ventricular Function (Wall Motion): The calculated left ventricular ejection fraction after stress: 50%. LV global systolic function is low normal. No left ventricular regional motion abnormality. Echocardiogram Summary: Date 08/2018: Post Valve replacement: EF 61%, mild MR/TR. Date of study: 07/07/2018 Transthoracic Echocardiography M-mode, complete 2D, complete spectral Doppler, and color Doppler *STUDY CONCLUSIONS* Summary: 1. Left ventricle: The cavity size was normal. Wall thickness was increased in a pattern of moderate LVH. Systolic function was normal. The estimated ejection fraction was 55-60%. Wall motion was normal; there were no regional wall motion abnormalities. Doppler parameters are consistent with high ventricular filling pressure. 2. Right ventricle: The cavity size was normal. Systolic function was normal. 3. Left atrium: The atrium was moderately dilated. 4. Aortic valve: Probably trileaflet; severely thickened, severely calcified leaflets. Valve mobility was restricted. Transvalvular velocity was increased. There was severe stenosis. There was moderate regurgitation. Peak velocity (S): 5.9m/sec. VTI ratio of LVOT to aortic valve: 0.18. 5. Inferior vena cava: The vessel was patent and normal in size. The respirophasic diameter changes were in the normal range (greater than or equal to 50%), consistent with normal central venous pressure. Anesthesia Assessment and Plan Anesthesia History Personal History: No History of Anesthesia Complications Family History: No Family History of Anesthesia Complications Exercise Tolerance Exercise Tolerance: Metabolic Equivalents>4 Pertinent Negatives Pertinent Negatives: No Symptoms of GERD Cardiac & Pulmonary Exam Cardiac Exam: Normal S1/S2 Heart Sounds Pulmonary Exam: Clear Bilateral Breath Sounds Implantable Cardiac Device Does patient have a Pacemaker or an ICD?: No Airway Exam Known Difficult Airway: No Mallampati Class: 2 Mouth Opening: Normal (> 3cm) Thyromental Distance: Less than 3 cm Neck Range of Motion: Full ROM Neck Circumference: Normal Teeth Condition: Normal Dentition ASA Classification ASA Score: ASA 3 Emergency Case?: No NPO Status NPO Status: NPO Clears >2 hours, Solids >8 hours Anesthesia Plan Resuscitation Status: Full Code Anesthesia Technique: Spinal Anesthesia Airway Planned: Natural Airway Pain Management: Surgeon and patient request nerve block Monitors Used: Standard Monitors Preoperative Comments:: Last echo 2019, pt. states scheduled for another this summer. He is functionally active without any cardiac symptoms.
[2024-04-30] MEDS: Lactated Ringers 1,000 ML 80 ML IV (10:56)
[2024-04-30] MEDS: ceFAZolin 2 GM/50 ML BAG IVPB (12:28)
[2024-04-30] MEDS: TRANEXAMIC ACID/SOD. CHL. 1,000 MG/100 ML BAG 600 MG IVPB (12:47)
--- NOTE | 2024-04-30 14:08 | ROE_ITS ---
Operative Note Operative Note PRE-OP DIAGNOSIS: Right Patellar Tendon Rupture POST-OP DIAGNOSIS: same PROCEDURE: Right Patellar Tendon Repair SURGEON: Adarsh Méndez RECORD PRESS OPERATOR: Charlene Thomas ANESTHESIA TYPE: General LMA/ETT Refer to Anesthesia Record ESTIMATED BLOOD LOSS: 20 PATHOLOGY: none sent COMPLICATIONS: None Patient was transported to: PACU Patient's condition: stable Indications: I have seen Bart in clinic for a patellar tendon tear. Given this injury, I recommended operative fixation soon as possible. I discussed the technical details of a patellar ligament repair. I explained the risks of the procedure to include, but not limited to, bleeding, infection, pain, stiffness, damage to nerves and vessels, retear, patellar baja, need for repeat procedure, blood clot and cardiopulmonary demise. Despite these risks, Bart elected to proceed. Findings: There was a complex tear of the patellar ligament, mostly avulsed off the distal patella. However, there was some longitudinal split through the middle and also over the lateral aspect. There is also notable retinacular tearing laterally and to a lesser extent medially. The patellar ligament was repaired with a knotless suture anchor technique. Procedure Description: Bart was greeted in the preoperative holding area where the correct side was identified and marked. The consent was reviewed with the patient and signed. The history and physical was updated. All questions were answered. Preoperative mediacations were administered: Acetaminophen 1000mg, Celebrex 400mg. An adductor canal block was then administered by the anesthesia team in the [facility]. Bart was taken back to the operating room. A general anesthestic was then administered. The patient was placed into the supine position on the operating room table. All bony prominences were well padded. Prophylactic antibiotics in the form of Cefazolin were administered. 1g of Tranxemic Acid was given intravenously within 30 minutes of incision. The right leg was then prepped with Chloraprep and draped in a standard fashion with impervious stockinette and extremity drape. A second prep with Chloraprep was performed prior to placing Ioband. A timeout to confirm correct identity, side and site, procedure, allergies, anesthesia, and medical concerns was performed. The knee was placed onto a bone foam ramp, approximately 25 to 30 degrees of flexion, and a midline incision was made overlying the knee. This was made from the midpoint of the patella to the level of the proximal tibia. Full thickness skin flaps were raised which exposed the complex tear of the patellar ligament. This is a primary avulsion tear off of the distal patella with some longitudinal splitting within the ligament both within the midline and laterally. There is significant tearing transversely into the lateral retinaculum. There was some oblique tearing into the medial retinaculum. The knee was then thoroughly irrigated. This allowed to identify the tear pattern. The fibers of the distal aspect were debrided although there is significant irregularity. Just the edges were debrided to freshen up the tissue but without losing much length. There was a few longer strands of patellar ligament still attached to the dorsal surface of the patella more laterally which seem to incorporate to the lateral aspect of the patellar ligament. These were elevated slightly off the distal aspect of the patella and retracted out of the way for later use. The distal end of the patella that was debrided with a rongeur and the curette until there was bleeding bone. The proposed sites for suture anchors were marked on the bone itself. I then used a #2 fiber tape suture to create locking Krak?w sutures going up and down the patellar ligament. Given the amount of tearing within the fibers and the splits running down the length of the patellar ligament, I placed 2 suture limbs, each 1 down and back medially and laterally, respectively. These were done with a locking Krak?w suture making sure to tighten each throw and remove any slack from the suture. He had excellent control of the patellar ligament. I was easily able to bring the patella to the patellar ligament with the knee at 30 degrees of flexion on the bone foam ramp. Before placing the sutures into the patella I then placed sutures, #1 Vicryl, into the lateral medial retinaculum for later closure. These were placed, clamped, and moved out of the way. I then prepared the bone bed for the 4.75 mm swivel lock anchor by first drilling the anchor path with a 2.5 mm drill and then using the swivel lock tap. This was done for both bone tunnels within the patella I then placed the 2 sutu re limbs from the medial side into the end of the knotless swivel lock anchor. This was docked into the bone making sure that the suture limbs were against the eyelid and the ligament was resting against the distal aspect of the patella. This was then tapped into position and screwed into place with excellent purchase into the bone until the tip of the screw was flush. This had brought the ligament serial down to the patella. The suture limbs were cut. The remaining sutures were used later. The same was repeated for the lateral suture limbs. I then utilized the shuttle suture to pass a #2 FiberWire and incorporate some of the proximal aspect of the patellar ligament against the periosteum and dorsal tissue of the patella. These were tied and showed excellent reapproximation of the full-thickness of the proximal [place] ligament against the patella. I then tied the medial lateral retinaculum sutures which were previously placed. I then laid back down the torn patellar ligament which was attached to the dorsal?lateral aspect patella against the dorsal lateral aspect of the patellar ligament. I incorporated this and some of the retinacular tissues together with a #1 Vicryl. Some of the peritenon of the patellar ligament was repaired. I then thoroughly irrigated the wound once again with Surgiphor Betadine solution. I also injected the deep and superficial tissues with a mixture of ropivacaine, epinephrine, clonidine, and ketorolac. The subtenons tissues were then reapproximated with a buried #2-0 Vicryl suture. The skin was closed with a running 3-0 Monocryl in a subcuticular fashion. This was reinforced with skin glue. A Mepilex silver dressing was applied along with a [id number] MARIELLE wrap. A CryoCuff was applied. Bart was transferred to the hospital bed without difficulty an suffering no apparent complication. He has a guarded prognosis. He will be weightbearing as tolerated with a knee extended in a knee immobilizer. He will continue with a knee immobilizer at all times today for hygiene until follow-up in 2 weeks. We will not begin any active flexion or extension until that point. He will resume his apixaban tonight. Date of Procedure: 04/30/24
--- NOTE | 2024-04-30 15:15 | W.ANESPOSTOP ---
Postoperative Evaluation Date, Time and Location Date Performed: 04/30/24 Time Performed: 15:15 Patient Location: Day Surgery Unit Vital Signs Most Recent Imported Vital Signs: Most Recent Vital Signs Temp Pulse Resp BP Pulse Ox 36.1 C L 71 16 130/69 99 04/30/24 14:53 04/30/24 14:53 04/30/24 14:53 04/30/24 14:53 04/30/24 14:53 Pain Score Most Recent Pain Score: Most Recent Pain Score Pain Level 4 04/30/24 14:48 Assessment Mental Status: Awake (Alert & Oriented to Patient Baseline) Airway and Respiratory Function: Patent airway with normal (patient baseline) respiratory exam Cardiovascular Function: Hemodynamically Stable Hydration Status: Adequately Hydrated Nausea & Vomiting: No Nausea or Vomiting Pain: Pain is tolerable per patient Peripheral Nerve Block: Patient did not receive a nerve block
--- NOTE | 2024-05-05 11:31 | W.ANESNERVE ---
Nerve Block Single Injection Procedure Date and Time Date Performed: 04/30/24 Procedure Start: 11:45 Location Where Procedure Performed Procedure Location: Day Surgery Unit Reason Performed: Postoperative Analgesia Requesting Provider: Adarsh Méndez Timeout Performed Timeout Performed: Yes Monitoring Used ECG, Blood Pressure, SpO2 and See EMR for corresponding vital signs Sterility Sterility: Hand Hygiene, Surgical Cap, Surgical Mask, Sterile Gloves and Chlorhexidine Sedation Given During Procedure Sedation Given (Indicate Dose Given): No Sedation given Patient Mental Status Patient Mental Status: Awake Nerve Block 1st Nerve Block: Laterality: Right Block Type: Adductor Canal Ultrasound Image Saved?: Yes Needle / Catheter Used: 100mm SonoPlex II Local Anesthetic Bolus (Indicate Dose Given): Lidocaine used for local infiltration of skin, Injected in 3-5ml increments after negative blood aspiration, Bupivacaine 0.25% Dose:: 10ml and Exparel Dose:: 10ml Additives (Indicate Dose Given): None Ultrasound: Sterile probe cover and gel used Nerve Stimulator: Not Used Paresthesia: None Procedure Tolerated: No Complications and Patient tolerated well Procedure Outcome: Successful Performed By: Iron Cespedes
== END 2024-04-30 16:48 | disposition home or self-care (01) ==
PROVIDERS: PCP Family Medicine; Visit Provider Student in an Organized Health Care Education/Training Program
PROC: (CPT 27380; principal; 2024-04-30 12:45)
DX: S86.811A Strain of other muscle(s) and tendon(s) at lower leg level, right leg, initial encounter (principal); I48.0 Paroxysmal atrial fibrillation; Z95.3 Presence of xenogenic heart valve; I10 Essential (primary) hypertension; E78.5 Hyperlipidemia, unspecified; W00.0XXA Fall on same level due to ice and snow, initial encounter
CPT/HCPCS: 27380; 64447; 76942; J0665; J0666; J0690; J1100; J2250; J2371; J2401; J2405; J2704

== ENCOUNTER → 2024-05-13 10:23 | Outpatient (BNVA) | payer MEDICARE, SELFPAY | PROVIDERS: PCP Family Medicine; Referring Provider Family Medicine; Visit Provider Student in an Organized Health Care Education/Training Program | DX: S86.811D Strain of other muscle(s) and tendon(s) at lower leg level, right leg, subsequent encounter (principal); X58.XXXD Exposure to other specified factors, subsequent encounter | CPT/HCPCS: 99024 ==

== ENCOUNTER → 2024-06-10 08:23 | Outpatient (BNVA) | payer MEDICARE, SELFPAY | PROVIDERS: PCP Family Medicine; Referring Provider Family Medicine | DX: Z47.89 Encounter for other orthopedic aftercare (principal) | CPT/HCPCS: 99024 ==

== ENCOUNTER → 2024-07-22 08:15 | Outpatient (BNVA) | payer MEDICARE, SELFPAY | PROVIDERS: PCP Family Medicine; Referring Provider Family Medicine; Visit Provider Physician Assistant | DX: S86.811D Strain of other muscle(s) and tendon(s) at lower leg level, right leg, subsequent encounter (principal); X58.XXXD Exposure to other specified factors, subsequent encounter | CPT/HCPCS: 99024 ==

== ENCOUNTER 2024-09-13 00:18 | Outpatient (CLI) | payer MEDICARE, SELFPAY ==
--- NOTE | 2024-09-13 08:30 | DI.US_ITS ---
APPROVED REPORT EXAM: Comprehensive 2D, Doppler, and color-flow Echocardiogram Patient Location: Out-Patient Natural Resource Economist: Brenda Reyes RDCS (AE) Indications: Aortic valve replacement, aortic stenosis, PAF Other Information Study Quality: Adequate Conclusion Normal left ventricular wall thickness and chamber size. Ejection fraction is 60%. Wall motion is normal Right atrium and right ventricle are not well-visualized Normal left atrial size There is a bioprosthetic aortic valve with a mean gradient of 18 mmHg. There is trace aortic regurgitation Mild mitral and tricuspid regurgitation Estimated right ventricular systolic pressure is 21 mmHg Wall motion Left Ventricle The left ventricle is normal size. The left ventricular systolic function is normal. The left ventricular ejection fraction is within the normal range. There is normal left ventricular wall thickness. There is normal LV segmental wall motion. There is no ventricular septal defect visualized. LVEF is 60%. Right Ventricle Right ventricle is not well visualized. Right ventricular systolic function could not be assessed. Atria The left atrium size is normal. Right atrium is not well visualized. The interatrial septum is intact with no evidence for an atrial septal defect. Aortic Valve Mean gradient is 18 mmHg Trace aortic regurgitation. Bioprosthetic aortic valve is present. Mitral Valve The mitral valve is normal in structure. No evidence of mitral valve stenosis. Mild mitral regurgitation. Tricuspid Valve The tricuspid valve is normal in structure. There is no tricuspid valve stenosis. Mild tricuspid regurgitation. The RVSP is 20.7_ mmHg. Pulmonic Valve The pulmonary valve is normal in structure. There is no pulmonic valvular stenosis. Mild pulmonic regurgitation. Great Vessels The aortic root is normal in size. The ascending aorta is normal in size. Aortic arch is not well visualized. IVC is normal in size and collapses >50% with inspiration. Pericardium There is no pericardial effusion. 2D Dimensions IVSD d PLAX 0.96 cm M: 0.6-1.2 Ao Root d 2.40 cm M: 3.1 - 3.7 LVPW d PLAX 0.99 cm M: 0.6 - 1.2 Ao Asc Diam d 3.21 cm M: 2.6 - 3.4 LVID d PLAX 5.03 cm M: 4.2 - 5.8 LVDs 3.46 cm M: 2.5 - 4.0 LV EF Teichholz 58.9 % FS 31.30 % LV EDV (Teich) 120.0 mL LV ESV (Teich) 49.4 mL Auto EF LV EDV A4C 186.1 mL LV EDV A2C 149.8 mL LV EDV BP 166.3 mL LV ESV A4C 79.2 mL LV ESV A2C 60.0 mL LV ESV BP 69.1 mL LVEF(%) A4C 57.5 % LVEF(%) A2C 60.0 % LVEF(%) BP 58.5 % LV SV A4C 106.9 ml LV SV A2C 89.9 ml LV SV BP 97.3 ml LV CO A4C 6.5 L/min LV CO A2C 5.4 L/min LV CO BP 5.9 L/min HR A4C 60.40 BPM HR A2C 60.10 BPM LV EDV Index (BP) LA Volume LA Length A4C 3.4 cm LA Length A2C 4.6 cm LA Area A4C s 9.94 cm2 LA Area A2C s 18.03 cm2 LA Vol A4C A-L 24.37 mL LA Vol A2C A-L 59.45 mL LA Vol Biplane A-L 44.2 mL LA Vol/BSA A4C A-L LA Vol/BSA A2C A-L LA Vol/BSA BP A-L 23.6 mL/m2 LA Vol A4C MOD 23.0 mL LA Vol A2C MOD 54.6 mL LA Vol BP MOD 41.1 mL LV Diastology MV E' medial 0.082 (>0.07 m/s) MV E Vmax 0.90 (0.4-1.3 m/s) MV E/E' MED 10.92 (<14) MV A Vmax 1.00 (0.4-1.3 m/s) MV E' lateral 0.118 (>0.1 m/s) E/A Ratio 0.9 MV E/E' LAT 7.62 (<14) MV E' Average 0.100 m/s MV E/E'(average) 8.98 Aortic Valve AoV Vmax 2.76 m/s LVOT Vmax 1.28 m/s AoV Peak Grad 30.6 mmHg LVOT Peak Grad 6.5 mmHg AoV Area (Vmax) 1.11 cm2 LVOT VTI 0.275 m AoV VTI 0.672 m LVOT Mean Grad 3.3 mmHg AoV Mean Bill. 1.98 m/s LVOT SV 66.35 mL AoV Mean Grad 17.7 mmHg LVOT Diam s 1.75 cm AoV Area (VTI) 0.99 cm2 Velocity Ratio 0.46 Mitral Valve MV DT 195 (160-240 msec) MV Vmax TIPS 0.83 m/s MV Mean Grad 0.9 (<2mmHg) MV VTI 0.226 m Pulmonary Valve PV Vmax 0.85 (0.5-1.5 m/s) RVOT Vmax 0.47 m/s PV Peak Grad 2.9 mmHg RVOT Peak Gr. 0.9 mmHg PV Mean Bill 0.54 m/s RVOT VTI 0.124 m PV Mean Grad 1.4 mmHg RVOT Mean Gr. 0.5 mmHg Tricuspid Valve RA Pressure 3.00 mmHg TR Vmax 2.09 m/s TR Peak Grad 17.7 mmHg RVSP (TR) 20.7 mmHg
== END 2024-09-13 00:38 ==
LOC: DI 00:18
PROVIDERS: PCP Family Medicine; Visit Provider Internal Medicine Cardiovascular Disease
DX: I35.0 Nonrheumatic aortic (valve) stenosis (principal)
CPT/HCPCS: 93306

== ENCOUNTER → 2024-10-04 08:28 | Outpatient (BNVA) | payer MEDICARE, SELFPAY | PROVIDERS: PCP Family Medicine; Referring Provider Family Medicine; Visit Provider Student in an Organized Health Care Education/Training Program | DX: S86.811D Strain of other muscle(s) and tendon(s) at lower leg level, right leg, subsequent encounter (principal); X58.XXXD Exposure to other specified factors, subsequent encounter | CPT/HCPCS: 99213 ==

== ENCOUNTER 2024-10-19 07:44 | Outpatient (CLI) | payer MEDICARE, SELFPAY ==
--- NOTE | 2024-10-19 07:30 | RT.EKG_ITS ---
APPROVED REPORT Exam: Resting ECG Reason for Exam: PAF Patient Location: O HR:68 bpm ECG Measurements Heart Rate 68 AXIS DE [id number] P [id number] QRSd 160 QRS -32 QT 417 T 15 QTc 444 Conclusion Sinus rhythm Multiple ventricular premature complexes Right bundle branch block...QRSd>120, terminal axis(90,270)
== END 2024-10-19 07:45 | disposition home or self-care (01) ==
LOC: DI.CARD 07:45
PROVIDERS: PCP Family Medicine; Visit Provider Internal Medicine Cardiovascular Disease
DX: I48.0 Paroxysmal atrial fibrillation (principal); I45.10 Unspecified right bundle-branch block
CPT/HCPCS: 93010

== ENCOUNTER → 2024-10-19 09:19 | Outpatient (BNVA) | payer MEDICARE, SELFPAY | PROVIDERS: PCP Family Medicine; Visit Provider Urology | DX: R31.29 Other microscopic hematuria (principal); N35.919 Unspecified urethral stricture, male, unspecified site; R30.0 Dysuria | CPT/HCPCS: 99213; 81002 ==

== ENCOUNTER → 2024-10-19 09:46 | Outpatient (BNVA) | payer MEDICARE, SELFPAY | PROVIDERS: PCP Family Medicine; Visit Provider Internal Medicine Cardiovascular Disease | DX: I48.0 Paroxysmal atrial fibrillation (principal); Z95.2 Presence of prosthetic heart valve | CPT/HCPCS: 99213; 93005 ==

== ENCOUNTER 2024-10-19 10:47 | Outpatient (REF) | payer MEDICARE, SELFPAY ==
--- NOTE | 2024-10-19 10:30 | PAPNONF_PTH ---
PATIENT: Eddie Goff LOC: [facility] U#:[id number] AGE/SX: 74/M ROOM: RE10/19/[address]: Sabino Wray MD : [id number] BED: DIS: 10/19/2024 SPEC #: [id number] RECD: 10/19/24 12:53 STATUS: CLAIR REQ #: [id number] RISHI: 10/19/24 10:[address]: Sabino Wray DEPT: [facility] Cytology RECD BY: Keisha Horn ENTERED: 10/19/24 12:54 SP TYPE: GERMAINE RIVAS DR: Nicholas Whitmore MD Tissues: 1 - BODY FLUID CYTO(SPUTUM/URINE)[facility] Procedures: BODY FLUID CYTO(URINE/SPUTUM) Comments: [id number] (TV = 70 ml, 30 ml CYTOLYT ADDED) (REFRIGERATED)
== END 2024-10-19 10:48 | disposition home or self-care (01) ==
LOC: LBN 10:47
PROVIDERS: PCP Family Medicine; Visit Provider Urology
DX: R31.0 Gross hematuria (principal)
CPT/HCPCS: 88104

== ENCOUNTER → 2024-11-16 07:41 | Outpatient (BNVA) | payer MEDICARE, SELFPAY | PROVIDERS: PCP Family Medicine; Referring Provider Family Medicine; Visit Provider Urology | DX: R30.0 Dysuria (principal); N35.919 Unspecified urethral stricture, male, unspecified site | CPT/HCPCS: 99213 ==